=== PATIENT | male | born 1935 | race African-American/Black ===

== ENCOUNTER 2017-11-10 22:22 | Inpatient (IN) | payer OTHER ==
[~2017-11-10] VITALS: Ht 165.1 cm; Wt 68.6 kg
[~2017-11-10 22:22] MED LIST: ADVAIR HFA 115/1 PUF PO; AZOPT 10 ML10 ML OD; HYDRODIURIL 2525 MG PO; LEVOTHROID SO0.05 MG PO; MASON NATURAL2000 IU PO; MEDROL DOSEPAK1 PAC PO; PREDNISONE10 MG PO; VERAPAMIL HCL240 MG PO; XALATAN 0.50 GTT/1 B OPH
--- NOTE | 2017-11-10 22:28 | ED GENERAL ADULT ---
History of Present Illness General Chief Complaint: Dyspnea (COPD, CHF, Other) Stated Complaint: BIBA FOR DIFF BREATHING Source: old records, EMS Exam Limitations: poor historian Vital Signs & Intake/Output Vital Signs & Intake/Output Vital Signs Date Time Temp Pulse Resp B/P B/P Pulse O2 O2 Flow FiO2 Mean Ox Delivery Rate 11/11 0003 68 20 133/69 98 Nasal 2.0L Cannula 11/10 2227 98.8 93 30 164/77 97 Room Air ED Intake and Output 11/11 0000 11/10 1200 Intake Total 0 Output Total Balance 0 Intake, Oral 0 Allergies Coded Allergies: NO KNOWN ALLERGIES (01/05/14) Triage Nurses Notes Reviewed? yes HPI: Patient presents for evaluation of shortness of breath followed by an episode of unresponsiveness. Patient himself is not providing history and paramedics state that the family was unable to provide history as well. (Earline FALK,eRese Tapia) Reconcile Medications Brinzolamide (Azopt 10 Ml) 1 % DROPS.SUSP 1 GTT OD BID RIGHT EYE (Reported) CHOLECALCIFEROL (VITAMIN D3) (Vitamin D) (Unknown Strength) SGL (Unknown Dose) PO DAILY SUPPLEMENT (Reported) Donepezil HCl 10 MG TABLET 1 TAB PO DAILY ALZHEIMERS (Reported) Fluticasone Propionate/Salme (Advair Hfa 115-21 Mcg Inhaler) 115 MCG-21 MCG/ ACTUATION HFA.AER.AD 1 PUF PO DAILY COPD (Reported) Fluticasone-Salmeterol (Advair 100-50 Diskus) 100 MCG-50 MCG/DOSE BLST.W.DEV 1 PUF INH BID EMPHYSEMA (Reported) Latanoprost (Xalatan 0.005% 2.5 Ml) 0.005 % DROPS 1 GTT OPH QPM BOTH EYES ( Reported) Levothyroxine Sodium (Levothroid Sodium) 0.05 MG TAB 1 TAB PO DAILY THYROID ( Reported) Levothyroxine Sodium 50 MCG TABLET 1 TAB PO DAILY HYPOTHYROIDISM (Reported) Memantine HCl (Namenda) 10 MG TABLET 1 TAB PO BID ALZHEIMERS (Reported) Methylprednisolone. (Medrol) 1 PAC PAC 1 PAC PO TAPER COPD VERAPAMIL HCL (Verapamil Sr) 240 MG CAP24H.PEL 1 CAP PO DAILY BP (Reported) Verapamil HCl (Verapamil ER) 240 MG CAP24H.PEL 1 CAP PO DAILY HYPERTENSION ( Reported) (Jeremiah FALK,Chan Bonilla) Past History Travel History Traveled to [place] past 21 day No Medical History Any Pertinent Medical History? see below for history Neurological: STROKE Cardiovascular: hypertension Respiratory: EMPHESYMA Psychiatric: DEMENTIA Endocrine: HYPOTHYROID Surgical History Surgical History: non-contributory Psychosocial History What is your primary language Estonian Family History Hx Contributory? No (Earline FALK,Reese Tapia) Review of Systems Review of Systems Constitutional: Reports: no symptoms. EENTM: Reports: no symptoms. Respiratory: Reports: see HPI. Cardiovascular: Reports: no symptoms. GI: Reports: no symptoms. Genitourinary: Reports: no symptoms. Musculoskeletal: Reports: no symptoms. Skin: Reports: no symptoms. Neurological/Psychological: Reports: no symptoms. Hematologic/Endocrine: Reports: no symptoms. Immunologic/Allergic: Reports: no symptoms. All Other Systems: Reviewed and Negative (Earline FALK,Reese Tapia) Physical Exam Physical Exam General Appearance: SEE BELOW Comments: Gen.: Well-nourished, well-developed, no acute respiratory distress. Head: Normocephalic, atraumatic. Eyes: Normal inspection bilaterally Ears: Normal inspection bilaterally Nose: Normal inspection Throat/mouth : Moist mucosa Neck: Supple, full range of motion, no goiter Heart: Regular rate and rhythm, no murmurs rubs or gallops Lungs: Clear to auscultation bilaterally with normal air entry Chest: Nontender Back: Normal range of motion Abdomen: Soft, nontender, nondistended, normal bowel sounds Extremities: Normal range of motion grossly, equal radial pulses, no cyanosis clubbing or edema Neurologic: Cranial nerves grossly intact, speech is clear, perseverating "[facility]" Skin: warm and dry Psychiatric: Calm, compliant with exam but not particularly cooperative, no apparent delusions or hallucinations Core Measures ACS in differential dx? No CVA/TIA Diagnosis: No Sepsis Present: No Sepsis Focused Exam Completed? No (Earline FALK,Reese Tapia) Progress Differential Diagnoses I considered the following diagnoses in my evaluation of the patient: Plan of Care: Orders Procedure Date/time Status TSH REFLEX 11/11 599 Active Patient Data 11/11 99 Active Saline Lock 11/11 37 Active ED Holding Orders 11/11 37 Active Admit to inpatient 11/11 37 Active Vital Signs 11/11 37 Active Code Status 06/13 0038 Active Add-on Test (ER Only) 11/11 0033 Active Intake & Output 11/10 2312 Active Add-on Test (ER Only) 11/10 2258 Active PROLACTIN 11/11 2231 Complete LACTIC ACID 11/11 2231 Complete CREATINE PHOSPHOKINASE 11/11 2231 Complete Saline Lock 11/11 2227 Active URINE DRUG SCREEN FOR ER ONLY 11/11 2227 Complete URINALYSIS 11/11 2227 Complete TROPONIN LEVEL 11/11 2227 Complete ETHANOL 11/11 2227 Complete COMPREHENSIVE METABOLIC PANEL 11/11 2227 Complete CBC WITHOUT DIFFERENTIAL 11/11 2227 Complete EKG 11/11 2223 Active Laboratory Tests 11/10/17 2345: Urine Opiates Screen < 100, Methadone Screen 40, Barbiturate Screen < 60, Ur Phencyclidine Scrn < 6.00, Amphetamines Screen 402, U Benzodiazepines Scrn < 85, Urine Cocaine Screen < 50, Urine Cannabis Screen < 5.00, Urine Color YEL, Urine Clarity HAZY H, Urine pH 6.0, Ur Specific [place] >= 1.030, Urine Protein 30 H , Urine Ketones NEG, Urine Nitrite POS H, Urine Bilirubin NEG, Urine Urobilinogen 0.2, Ur Leukocyte Esterase SMALL H, Ur Microscopic SEDIMENT EXAMINED, Urine RBC RARE, Urine WBC 10-15 H, Ur Epithelial Cells RARE, Urine Bacteria MOD H, Hyaline Casts RARE H, Urine Mucus RARE, Urine Hemoglobin SMALL H, Urine Glucose 100 H 11/10/172231: Anion Gap 22 H, Estimated GFR > 60, BUN/Creatinine Ratio 13.6, Glucose 179 H, Lactic Acid 11.0 H, Calcium 9.5, Total Bilirubin 0.3, AST 32, ALT 31, Alkaline Phosphatase 90, Creatine Kinase 140, Troponin I < 0.01, Total Protein 7.3, Albumin 4.2, Globulin 3.1, Albumin/Globulin Ratio 1.4, Prolactin 21.0 H, CBC w Diff NO MAN DIFF REQ, RBC 4.29 L, MCV 95.7 H, MCH 30.9, MCHC 32.3 L, RDW 15.3 H, MPV 7.4, Gran % 43.9, Lymphocytes % 45.9, Monocytes % 8.1, Eosinophils % 1.5 , Basophils % 0.6, Absolute Granulocytes 4.6, Absolute Lymphocytes 4.8 H, Absolute Monocytes 0.9 H, Absolute Eosinophils 0.2, Absolute Basophils 0.1, Serum Alcohol < 10.0 Comments: 11/10/2017 11:37:31 PM patient signed out to Dr. Daniels at [employer]. (Earline FALK,Reese Tapia) Differential Diagnoses I considered the following diagnoses in my evaluation of the patient: seizure vs syncope vs other. Diagnostic Imaging: Viewed by Me: Radiology Read, CT Scan. Discussed w/RAD: Radiology Read, CT Scan. Radiology Impression: PATIENT: HAYES KIM PRESENT AGE: 82 PATIENT ACCOUNT NO: [id number] : 36 LOCATION: ER ORDERING PHYSICIAN: Reese Patten MD SERVICE DATE: 11/10/17 EXAM TYPE: CAT - CT HEAD WO IV CONTRAST EXAMINATION: CT HEAD WITHOUT CONTRAST CLINICAL INFORMATION: CVA, hemorrhage, mass. Altered mental status COMPARISON: Brain MRI 01/08/2015 TECHNIQUE: Contiguous axial imaging was performed from the skull base to vertex without intravenous administration of contrast. DLP: 621 mGy-cm. FINDINGS: There is no intracranial hemorrhage, large infarction, or mass lesion. There is no extra-axial collection. There is moderate scattered hypoattenuation in the bilateral cerebral white matter, which is nonspecific but likely reflects small vessel disease. There is mild diffuse brain parenchymal volume loss with prominence of the ventricles and sulci. The paranasal sinuses are clear. The mastoids and middle ear cavities are clear. IMPRESSION: - No acute abnormality identified. - Moderate small vessel ischemic changes. DICTATED BY: Suzan Albrecht MD DATE/TIME DICTATED:11/10/172312 PHOTO CHECKER:JESSE DATE/TIME TRANSCRIBED:11/10/172312 CONFIDENTIAL, DO NOT COPY WITHOUT APPROPRIATE AUTHORIZATION. <Electronically signed in Other Vendor System> SIGNED BY: Suzan Albrecht MD 11/10/17 2319, PATIENT: HAYES KIM PRESENT AGE: 82 PATIENT ACCOUNT NO: [id number] : 36 LOCATION: [facility] [place] ORDERING PHYSICIAN: Reese Patten MD SERVICE DATE: 11/10/17 EXAM TYPE : RAD - XRY-PORTABLE CHEST XRAY EXAMINATION: XR PORTABLE CHEST CLINICAL INFORMATION: Infiltrate. Altered mental status. COMPARISON: Chest radiograph . TECHNIQUE: Portable frontal view of the chest was obtained. FINDINGS: There is patchy consolidation in the right lower lung zones which is superimposed on chronic right lower lobe pleural-parenchymal thickening/ scarring. There is also patchy consolidation left lower lung zone. There is no edema, effusion, or pneumothorax. The aorta is normal. Heart size is normal. The osseous structures are grossly intact. IMPRESSION: Patchy consolidation in the bilateral lower lung zones superimposed on chronic changes. DICTATED BY: Suzan Albrecht MD DATE/TIME DICTATED:11/10/172315 PHOTO CHECKER:JESSE DATE/ TIME TRANSCRIBED:11/10/172315 CONFIDENTIAL, DO NOT COPY WITHOUT APPROPRIATE AUTHORIZATION. <Electronically signed in Other Vendor System> SIGNED BY: Suzan Albrecht MD 11/10/172320 Initial ED EKG: sinus, rbbb, no acute changes (Chan Daniels MD) Departure Departure Disposition: STILL A PATIENT Condition: Stable Referrals: Magui FALK,Cortes Dasilva (PCP/Family) Departure Forms: Customer Survey General Discharge Information (Earline FALK,Reese Tapia) Departure Clinical Impression Primary Impression: Altered mental status Secondary Impressions: Seizure Comments 11/11/17, 0:43... discussed with neurology who will see patient later today. Admission Note Spoke With: Souleymane Sales MD Documentation of Exam: Documentation of any treatments & extenuating circumstances including Concerns Regarding Discharge (functional status, medication knowledge or non-compliance, living conditions, etc.) that warrant an admission rather than observation: pt with grand mal tonic clonic seizure type activity... diff dx includes seizure vs syncope/dysrhythmia... merits serial trops/ekgs/neuro evaluation. (Chan Daniels MD) Critical Care Note Critical Care Note Critical Care Time: non-applicable (Chan Daniels MD)
[2017-11-10 22:41] LABS: ABSOLUTE BASOPHIL COUNT 0.1 /CUMM (0.0-0.2); ABSOLUTE EOSINOPHIL COUNT 0.2 /CUMM (0.0-0.7); ABSOLUTE GRANULOCYTE CT 4.6 /CUMM (1.4-6.5); ABSOLUTE LYMPH COUNT 4.8 /CUMM (1.2-3.4); ABSOLUTE MONOCYTE COUNT 0.9 /CUMM (0.10-0.60); BASOPHIL % 0.6 % (0.0-2.0); EOSINOPHIL % 1.5 % (0-5); GRANULOCYTE % 43.9 % (42.2-75.2); MEAN CORPUSCULAR HGB 30.9 PG (27.0-31.0); MEAN CORPUSCULAR HGB CONC 32.3 G/DL (33.0-37.0); MEAN CORPUSCULAR VOLUME 95.7 FL (80.0-94.0); MEAN PLATELET VOLUME 7.4 FL (7.4-10.4); PLATELET COUNT 190 /CUMM (130-400); RBC DISTRIBUTION WIDTH 15.3 % (11.5-14.5); RED BLOOD CELL CT 4.29 /CUMM (4.70-6.10); WHITE BLOOD CELL COUNT 10.6 /CUMM (4.8-10.8)
--- NOTE | 2017-11-10 23:19 | CT SCAN REPORT ---
EXAMINATION: CT HEAD WITHOUT CONTRAST CLINICAL INFORMATION: CVA, hemorrhage, mass. Altered mental status COMPARISON: Brain MRI 01/08/2015 TECHNIQUE: Contiguous axial imaging was performed from the skull base to vertex without intravenous administration of contrast. DLP: 621 mGy-cm. FINDINGS: There is no intracranial hemorrhage, large infarction, or mass lesion. There is no extra-axial collection. There is moderate scattered hypoattenuation in the bilateral cerebral white matter, which is nonspecific but likely reflects small vessel disease. There is mild diffuse brain parenchymal volume loss with prominence of the ventricles and sulci. The paranasal sinuses are clear. The mastoids and middle ear cavities are clear. IMPRESSION: - No acute abnormality identified. - Moderate small vessel ischemic changes.
--- NOTE | 2017-11-10 23:21 | RADIOLOGY REPORT ---
EXAMINATION: XR PORTABLE CHEST CLINICAL INFORMATION: Infiltrate. Altered mental status. COMPARISON: Chest radiograph 06/29/2015. TECHNIQUE: Portable frontal view of the chest was obtained. FINDINGS: There is patchy consolidation in the right lower lung zones which is superimposed on chronic right lower lobe pleural-parenchymal thickening/scarring. There is also patchy consolidation left lower lung zone. There is no edema, effusion, or pneumothorax. The aorta is normal. Heart size is normal. The osseous structures are grossly intact. IMPRESSION: Patchy consolidation in the bilateral lower lung zones superimposed on chronic changes.
[2017-11-10] MEDS ORDERED: LEVOTHYROXINE50 MCG PO (23:53)
[2017-11-10] MEDS ORDERED: VERAPAMIL ER240 MG PO (23:54)
[2017-11-10] MEDS ORDERED: ADVAIR 100-501 EACH INH (23:55)
[2017-11-10] MEDS ORDERED: NAMENDA10 M2 PO (23:55)
[2017-11-10] MEDS ORDERED: DONEPEZIL HCL10 M1 PO (23:56)
--- NOTE | 2017-11-11 01:26 | History & Physical ---
Margie Cotton MD,[facility] 11/11/17 0126: General Information and HPI MD Statement: I have seen and personally examined HAYES WEI and documented this H&P. The patient is a 82 year old M who presented with a patient stated chief complaint of [diff breathing]. Source of Information: patient, family, old records, EMS Exam Limitations: poor historian History of Present Illness: Patient is 82 y M with PMH of stroke, dementia, emphysema, HTN, hypothyroidism, GLUCOMA was BIBA to ED with after and episode of being unresponsive. Patient is relatively poor historian and family were contributing in history taking. Patient was in normal state of health until earlier yesterday, he was watching TV after eating dinner, he then became unresponsive suddenly and started to have generalized tonic colonic seizure. Family witnessed the episode and noted he had no bowel bladder incontinance, he had post episode confusion, he also uses dentures and did not bite his tongue (dentures were removed by EMS). EMS was called and patient was transfered to ED. By the time that patient arrived he was alert and oriented. Patient denied any head trauma during the episode, denied any halucination, dizziness, SOB, palpitation before the episode. Patient never had a similar episode in the past. He reported a stroke 20 y ago with residual eye (?) problem , and also reported neck surgery 30 y ago. He denied alcohol or drug abuse and quited smoking more than 30 years ago. Allergies/Medications Allergies: Coded Allergies: NO KNOWN ALLERGIES (01/05/14) Past History Travel History Traveled to [place] past 21 day No Medical History Neurological: STROKE Cardiovascular: hypertension Respiratory: EMPHESYMA Psychiatric: DEMENTIA Endocrine: HYPOTHYROID Surgical History Surgical History: non-contributory Review of Systems Review of Systems Constitutional: Reports: see HPI. Exam & Diagnostic Data Last 24 Hrs of Vital Signs/I&O Vital Signs Date Time Temp Pulse Resp B/P B/P Pulse O2 O2 Flow FiO2 Mean Ox Delivery Rate 11/11 0300 98.2 68 22 154/74 98 Nasal 2.0L Cannula 11/11 0247 98 Nasal 2.0L Cannula 11/11 0151 98.6 71 20 156/72 97 Nasal 2.0L Cannula 11/11 0003 68 20 133/69 98 Nasal 2.0L Cannula 11/107 98.8 93 30 164/77 97 Room Air Intake & Output 11/11 0800 11/11 0000 11/10 1600 Intake Total 0 Output Total Balance 0 Intake, Oral 0 Patient 136 lb Weight Weight Bed scale Measurement Method Physical Exam General Appearance Alert, Oriented X3, Cooperative, No Acute Distress Skin No Significant Lesion Skin Temp/Moisture Exam: Warm/Dry Sepsis Skin Exam (color): Normal for Ethnicity HEENT Atraumatic, EOMI, mucous membranes dry Cardiovascular Regular Rate, Normal S1, Normal S2 Lungs decreased breathing sounds in the right side Abdomen Soft, No Tenderness Neurological Normal Speech, Strength at 5/5 X4 Ext, Cranial Nerves 3-12 NL Extremities No Edema Last 24 Hrs of Labs/Rocky: Laboratory Tests 11/10/17 2345: Urine Opiates Screen < 100, Methadone Screen 40, Barbiturate Screen < 60, Ur Phencyclidine Scrn < 6.00, Amphetamines Screen 402, U Benzodiazepines Scrn < 85, Urine Cocaine Screen < 50, Urine Cannabis Screen < 5.00, Urine Color YEL, Urine Clarity HAZY H, Urine pH 6.0, Ur Specific [place] >= 1.030, Urine Protein 30 H , Urine Ketones NEG, Urine Nitrite POS H, Urine Bilirubin NEG, Urine Urobilinogen 0.2, Ur Leukocyte Esterase SMALL H, Ur Microscopic SEDIMENT EXAMINED, Urine RBC RARE, Urine WBC 10-15 H, Ur Epithelial Cells RARE, Urine Bacteria MOD H, Hyaline Casts RARE H, Urine Mucus RARE, Urine Hemoglobin SMALL H, Urine Glucose 100 H 11/10/17 2232: Anion Gap 22 H, Estimated GFR > 60, BUN/Creatinine Ratio 13.6, Glucose 179 H, Lactic Acid 11.0 H, Calcium 9.5, Total Bilirubin 0.3, AST 32, ALT 31, Alkaline Phosphatase 90, Creatine Kinase 140, Troponin I < 0.01, Total Protein 7.3, Albumin 4.2, Globulin 3.1, Albumin/Globulin Ratio 1.4, Prolactin 21.0 H, CBC w Diff NO MAN DIFF REQ, RBC 4.29 L, MCV 95.7 H, MCH 30.9, MCHC 32.3 L, RDW 15.3 H, MPV 7.4, Gran % 43.9, Lymphocytes % 45.9, Monocytes % 8.1, Eosinophils % 1.5 , Basophils % 0.6, Absolute Granulocytes 4.6, Absolute Lymphocytes 4.8 H, Absolute Monocytes 0.9 H, Absolute Eosinophils 0.2, Absolute Basophils 0.1, Serum Alcohol < 10.0 Assessment/Plan Assessment: Patient is 82 y M presented after a TC seizure episode PMH of stroke, dementia, emphysema, HTN, hypothyroidism, GLUCOMA was BIBA VS, Ph Ex at admission: BP insignificant, initial respiratory rate 30, later 20, saturating well on 2l o2, no fever Labs at admission: WBC 10.6, Hgb 13.3 Sodium 148, anion gap 22, bicarbonate 23, lactic acid 11, prolactin 21 UA, which is positive, leukocyte esterase small, WBC 10-15, hemoglobin small Utox negative Imagings at admission: Chest x-ray: Patchy consolidation in the bilateral lower lung zones superimposed on chronic changes. Head CT: - No acute abnormality identified. - Moderate small vessel ischemic changes. Patient was admitted to telemetry floor for management of following conditions: Seizure, need to rule out secondary causes considering age r/o TIA/stroke active UA Pneumonitis/pneumonia Lactic acidosis - admit to tele floor -Cardiac, blood pressure monitor -Pulse ox, oxygen -IV fluids - MRI in AM - EEG - echo - Cardio consult in AM - neuro consult - hold Kepra, hold antibiotics for now -continue home medications FC Heart healthy diet DVT ppx: ALPS and pharmacological As Ranked By This Provider Problem List: 1. Seizure 2. Altered mental status Core Measures/Misc (02/15) Acute Coronary Syndrome ACS Diagnosis: No Congestive Heart Failure Congestive Heart Failure Diagnosis No Cerebrovascular Accident CVA/TIA Diagnosis: No VTE (View Protocol) VTE Risk Factors Age>40 No Mechanical VTE Prophylaxis d/t N/A MechProphylax Ordered No VTE Pharm Prophylaxis d/t NA PharmProphylax ordered Sepsis (View protocol) Sepsis Present: No If YES complete Sepsis Event Note If YES complete Sepsis Event Note Winsome Mane 11/11/17 0136: General Information and HPI Allergies/Medications Home Med list Aspirin (Aspirin*) 81 MG TAB.CHEW 162 MG PO DAILY HEART HEALTH . Atorvastatin Calcium 40 MG TABLET 40 MG PO 1700 HIGH CHOLESTROL Brinzolamide (Azopt) 1 % DROPS.SUSP 1 GTT OPH BID GLUACOMA RIGHT SIDE ( Reported) Ciprofloxacin HCl 250 MG TABLET 250 MG PO BID urine infection . Fluticasone-Salmeterol (Advair 100-50 Diskus) 100 MCG-50 MCG/DOSE BLST.W.DEV 1 PUF INH BID EMPHYSEMA (Reported) Latanoprost 0.005 % DROPS 1 GTT OPH QPM GLUCOMA (Reported) Levetiracetam 250 MG TABLET 250 MG PO BID SEIZURES Levothyroxine Sodium 50 MCG TABLET 1 TAB PO DAILY HYPOTHYROIDISM (Reported) Lisinopril 20 MG TABLET 20 MG PO DAILY HIGH BLOOD PRESSURE Memantine HCl (Namenda) 10 MG TABLET 1 TAB PO BID ALZHEIMERS (Reported) Metoprolol Tartrate 25 MG TABLET 25 MG PO BID HIGH BLOOD PRESSURE Core Measures/Misc (02/15) Sepsis (View protocol) If YES complete Sepsis Event Note If YES complete Sepsis Event Note Resident Review Statement Resident Statement: examined this patient, discussed with staff internist office based only, agreed with staff internist office based only Other Findings: Mr. Wei is a 82-year-old male with past medical history of dementia, emphysema, hypertension, hypothyroidism, glaucoma, previous history of stroke was brought in to emergency department after having an episode of being unresponsive followed by generalized tonic-clonic seizure on the night of presentation. Apparently the patient was doing all right prior to presentation when he was at the dinner table, he suddenly became unresponsive and began to have generalized tonic-clonic seizure which was witnessed by the family for a few minutes. This was followed by some confusions, h his dentures came out however he did not have any tongue biting, and they were removed by the EMS personnel. He denied any bowel bladder incontinence, any palpitations, dizziness lightheadedness, any weakness of the extremity, slurring of speech. Patient was transferred to emergency department by the emergency medical service. After coming to the hospital he has mostly been alert oriented, has been contributing to history taking and did not have any more episodes of seizures. Of note patient has never had any episodes of seizures before and this is his first episode of seizure. Historically he had a stroke 20 years ago with residual eye problem and and neck surgery 30 years ago. He quit smoking more than 30 years ago, does not drink alcohol or any other major drug abuse. Vitals at the emergency department were temperature of 98.6, pulse of 71, respiration of 20, blood pressure 156/72, he was saturating 97% on 2 L of nasal cannula. His urine toxicology was mostly negative. Urinalysis showed small leukocyte esterase, nitrite positive with 10-15 WBCs, however the patient did not have any symptoms. He had a white count of 10.6, H/H of 13.3/41.0, platelet of 190. His sodium was 148, potassium 3.7, BUN/creatinine 15/1.1, glucose of 179, anion gap of 22. He was found to have a lactic acid of 11, prolactin 21.0. Calcium was 9.5 and liver function tests are mostly negative. Chest x-ray showed patchy consolidation in bilateral lower lung zones and superimposed on chronic changes. Head CT did not show any acute abnormality however moderate small vessel ischemic changes were present. We will admit the patient to telemetry floor for evaluation of brief episode of unresponsiveness along with seizure-like activity. #1 Seizure like activity #2 Unresponsiveness r/o TIA/Stroke/cardiac arrythmia #3 Positive UA #4 Thrombocytopenia #5 Lactic Acidosis #6 Glaucoma #7 dementia #8 hypothyroid -Ct to monitor on telemetry -Ct to monitor i/o, seizure precautions, aspiration precautions. -Iv Ativan if seizes -MRI brain to r/o secondary cause of seizures in elderly man with first time seizure episode in his 80's. -Neuro consult -EEG -Echo to r/o structural heart disease. -Ct to monitor lytes, replete as needed. -Treat off Ax as no symptoms though positive UA -Treat with iv fluids 1 to 2 bags. -Ct to follow cbc, BEP -Repeat lactic acid with am labs. -Ct latanoprost for glaucoma -Ct donepezil,memantine -Ct synthroid DNR/DNI regular diet dvt px with lovenox Henrry,Aartee 11/11/17 0534: Core Measures/Misc (02/15) Sepsis (View protocol) If YES complete Sepsis Event Note If YES complete Sepsis Event Note Attending MD Review Statement Attending Statement Attending MD Statement: examined this patient, discuss w/resident/PA/EMT DRIVER, agreed w/resident/PA/EMT DRIVER, discussed with family, reviewed EMR data (avail), reviewed images, amended to note Attending Assessment/Plan: CC: Seizure-like activity PMH: HTN, hypothyroidism, dementia, glaucoma, history of CVA, COPD, neck surgery History is obtained from patient's son who lives with him. Patient was apparently all right until dinnertime. He finished his dinner and routinely watching television when all of a sudden he became unresponsive and after that had seizure-like activity of all extremities. Vision did not have any tongue bite but dislodged his dentures. He did not have any bladder or bowel incontinence. Never had history of seizure or syncope in the past. Seizure activity may have lasted for 1-2 minutes, EMS was immediately called. By the time they came and patient was already improving and by the time patient arrived in ER he was alert and oriented. Patient does not have any residual weakness, confusion. Vitals: Temperature 98.8, pulse 93, RR 20, blood pressure 164/77, saturating 97% on 2 L nasal cannula On exam: A O 3, cooperative, no acute distress, neck supple, JVD normal, no lymphadenopathy, mucosa moist, PERRLA, vision intact, possibly mild weakness on lateral rectus on the right eye which does not appear new. No focal neurological deficit, tone and reflexes normal, cerebellar signs negative no dependent edema, no obvious skin rashes or inflammation CVS: S1-S2, RRR. RS: Mild crackles and right base. Abdomen: Soft, NT, ND, bowel sounds present. CXR: Patchy consolidation in the bilateral lower lung zones superimposed on chronic changes. CT head: - No acute abnormality identified. - Moderate small vessel ischemic changes. Assessment and plan 82-year-old male with above-mentioned past medical history presented in ER for seizure-like activity. According to description it appears that patient may have to tonic-clonic seizure at home and loss of consciousness. Patient regained consciousness immediately after the episode and did not have any residual weakness or confusion. He had significant lactic acidosis probably secondary to seizures. An prolactin was also elevated at initially ER labs. Patient's new onset seizure at age of 82 need further evaluation. Another possibility that he may have syncope followed by seizure but less likely. Even though these enhance mild crackles on right base and patchy consolidation bilateral lower lung zones, probably patient may have aspiration pneumonitis and we will not start any antibiotics. He also has nitrites and leukocyte esterase positive but does not endorse any complaints of urinary frequency, burning or irritation and we will watch him off antibiotics. + New-onset seizure + Rule out syncope + Lactic acidosis secondary to seizure + History of HTN, hypothyroidism, dementia, glaucoma, history of CVA, COPD, neck surgery - Admit to telemetry - Continuous telemetry monitoring - Serial neuro checks - Seizure precautions - When necessary Ativan for any repeat episode of seizure - If patient has seconds seizure episode then start Keppra 500 mg twice a day - MRI brain with and without contrast - EEG - Neuro consult - 2-D echocardiogram to rule out any structural causes for syncope - Serial troponin ECGs - Cardiology consult
[2017-11-11] MEDS ORDERED: AZOPT10 ML OPH (02:12)
[2017-11-11] MEDS ORDERED: LATANOPROST2.5 ML OPH (02:13)
[2017-11-11 03:00] VITALS: BP 154/74
--- NOTE | 2017-11-11 05:36 | Admission Certification ---
Admission Certification Certification Statement - As attending physician, I certify that at the time of - admission, based on clinical presentation, severity of - symptoms, need for further diagnostic testing and - therapeutic interventions, and risk of adverse outcomes - without in-hospital treatment, in my clinical assessment, - this patient requires an acute hospital stay for a minimum - of two nights or longer. I have also considered psychsocial - factors such as support system, advanced age, financial - issues, cognitive issues, and failed out-patient treatments, - past re-admission history, safety of patient, and lack of - compliance as applicable. Specific rationale supporting this admission is: New onset seizure
[2017-11-11 06:47] VITALS: BP 128/70; BP 142/64
[2017-11-11 06:53] VITALS: BP 142/64
--- NOTE | 2017-11-11 07:09 | PN- Housestaff ---
Martha FALK,Leisa 11/11/17 0709: Subjective Follow-up For: New-onset seizure like activities Rule out syncope Tele-Events Since Last Visit: Normal sinus rhythm, heart rate 68, 0.1, 0.2, BBB, no overnight events Subjective: Patient was seen and examined at bedside, he denies any complaints including headache, focal weakness or numbness. No overnight events, vitals stable Review of Systems Constitutional: Reports: see HPI. Objective Last 24 Hrs of Vital Signs/I&O Vital Signs Date Time Temp Pulse Resp B/P B/P Pulse O2 O2 Flow FiO2 Mean Ox Delivery Rate 11/11 0653 98.4 63 20 142/64 99 Nasal Cannula 11/11 0647 97.4 76 20 128/70 96 Room Air 11/11 0647 98.4 63 22 142/64 99 Room Air 11/11 0300 98.2 68 22 154/74 98 Nasal 2.0L Cannula 11/11 0247 98 Nasal 2.0L Cannula 11/11 0151 98.6 71 20 156/72 97 Nasal 2.0L Cannula 11/11 0003 68 20 133/69 98 Nasal 2.0L Cannula 11/10 2227 98.8 93 30 164/77 97 Room Air Intake & Output 11/11 1600 11/11 0800 11/11 0000 Intake Total 725 0 Output Total 75 Balance 650 0 Intake, IV 725 Intake, Oral 0 Output, Urine 75 Patient 136 lb Weight Weight Bed scale Measurement Method Physical Exam General Appearance: Alert, Oriented X3, Cooperative, No Acute Distress HEENT: Atraumatic, PERRLA, EOMI, Mucous Membr. moist/pink Neck: Supple, No JVD Cardiovascular: Normal S1, Normal S2 Lungs: Clear to Auscultation Abdomen: Normal Bowel Sounds, Soft, No Tenderness Neurological: Normal Speech, Strength at 5/5 X4 Ext, Normal Tone, Sensation Intact, Cranial Nerves 3-12 NL Extremities: No Clubbing, No Cyanosis, No Edema Assessment/Plan Assessment: 82-year-old male with PMH of dementia, emphysema, hypertension, hypothyroidism, glaucoma, previous history of stroke, presented in ER for seizure-like activity. According to description it appears that patient may have to tonic-clonic seizure at home and loss of consciousness. Patient regained consciousness immediately after the episode and did not have any residual weakness or confusion. On admission he had significant lactic acidosis which quickly resolved with making it most likely due to the seizure. -Seizure like activitynew onset at the age of 82 -? syncope - Lactic acidosis -resolved- -testicular pain and swelling (possible hydrocele) -History of HTN, hypothyroidism, dementia, glaucoma, history of CVA, COPD, neck surgery - Continuous telemetry monitoring - Serial neuro checks - Seizure precautions - When necessary Ativan for any repeat episode of seizure - If patient has seconds seizure episode then start Keppra 500 mg twice a day -Follow-up 1 MRI brain with and without contrast -Follow-up on EEG -Follow-up and ultrasound carotid -Follow-up on testicular ultrasound Follow-up 2-D echocardiogram to rule out any structural causes for syncope - Serial troponin ECGs were negative which ruled out ACS - Cardiology consult appreciated - Neuro consult appreciated DNR/DNI regular diet dvt px with lovenox Problem List: 1. Seizure 2. Altered mental status Pain Ratin Pain Location: N/A Pain Goal: Remain pain free Pain Plan: [facility] Labs & Rationales: CBC BEP Pepper Mckeon 11/11/17 1248: Attending MD Review Statement Attending Statement Attending MD Statement: examined this patient, discuss w/resident/PA/VIDEOTAPE OPERATOR, agreed w/resident/PA/VIDEOTAPE OPERATOR, discussed with family, reviewed EMR data (avail), discussed with nursing, discussed with case mgmt, reviewed images, amended to note Attending Assessment/Plan: Patient seen/examined bedside. PMH of dementia and hydrocele follow PCP as outpatient balwinder dunn by ambulance after founbd to have seizure like activity. Son bedside who is primary caregiver. Patient admitted to telemetry for syncope r/o seizure disorder. Obtain cardiology and neurology consult. Troponin negative so far. Obtain ECHO, MRI brain, Head CT negative. Hypernatrmeia with improvement. Na 146 today, 148 on admission Dementia provide supportive care Hydrocele with urinalysis abnormal will repeat UA, obtain culture. USG scrotum. Follow Dr Fuentes as outpatient.
[2017-11-11 08:16] LABS: ABSOLUTE BASOPHIL COUNT 0 /CUMM (0.0-0.2); ABSOLUTE EOSINOPHIL COUNT 0.1 /CUMM (0.0-0.7); BASOPHIL % 0.4 % (0.0-2.0); EOSINOPHIL % 0.6 % (0-5); MEAN CORPUSCULAR HGB 31.6 PG (27.0-31.0); MEAN PLATELET VOLUME 7.8 FL (7.4-10.4)
[2017-11-11 08:36] LABS: ABSOLUTE GRANULOCYTE CT 6.1 /CUMM (1.4-6.5); ABSOLUTE LYMPH COUNT 1.6 /CUMM (1.2-3.4); ABSOLUTE MONOCYTE COUNT 0.7 /CUMM (0.10-0.60); MEAN CORPUSCULAR HGB CONC 33.5 G/DL (33.0-37.0); MEAN CORPUSCULAR VOLUME 94.5 FL (80.0-94.0); PLATELET COUNT 152 /CUMM (130-400); RBC DISTRIBUTION WIDTH 15.4 % (11.5-14.5); RED BLOOD CELL CT 3.76 /CUMM (4.70-6.10); WHITE BLOOD CELL COUNT 8.5 /CUMM (4.8-10.8)
[2017-11-11 08:40] LABS: GRANULOCYTE % 71.9 % (42.2-75.2); HEMATOCRIT 35.5 % (42-52)
--- NOTE | 2017-11-11 12:22 | MRI REPORT ---
EXAMINATION: MR BRAIN WITHOUT CONTRAST CLINICAL INFORMATION: First time seizure in his 80s. COMPARISON: Head CT November 10, 2017 and brain MRI January 08, 2015. TECHNIQUE: Multiplanar, multisequence imaging of the brain was performed without intravenous contrast. The images are moderately motion degraded. \H\ \N\FINDINGS: There is no acute infarct, hemorrhage, or mass lesion. There is no extra-axial collection. There are moderate foci of T2 hyperintensity in the bilateral cerebral white matter, which are nonspecific but likely reflect underlying small vessel disease. There is mild diffuse brain parenchymal volume loss with prominence of the ventricles and sulci. The flow voids of the major intracranial arteries appear intact. Small amount of fluid in the right mastoid. The paranasal sinuses are clear. The orbital contents appear normal. IMPRESSION: - No acute infarct, mass lesion, intracranial hemorrhage, or evidence of hydrocephalus. - Moderate small vessel ischemic changes.
--- NOTE | 2017-11-11 14:18 | ULTRASOUND REPORT ---
EXAMINATION: DUPLEX BILATERAL CAROTID ULTRASOUND CLINICAL INFORMATION: Syncope and dizziness COMPARISON: None. TECHNIQUE: Duplex bilateral carotid US was performed using real-time ultrasound and Doppler techniques (integrating B-mode 2D vascular images, Doppler spectral analysis and color flow Doppler imaging). These techniques were utilized to interrogate the extracranial carotid and vertebral arteries bilaterally. The degree of stenosis is based off criteria similar to NASCET. FINDINGS: 1. On the right: Plaque is present at the carotid bifurcation but velocity measurements are normal and do not suggest a stenosis of greater than 50% diameter reduction in the right ICA. The right external carotid artery shows no significant stenosis. The vertebral artery is patent demonstrating antegrade flow. . 2. On the left: Plaque is present at the carotid bifurcation but velocity measurements are normal and do not suggest a stenosis of greater than 50% diameter reduction in the left ICA. The left external carotid artery shows no significant stenosis. The vertebral artery is patent demonstrating antegrade flow. IMPRESSION: Plaque is present in the internal carotid arteries but velocity measurements are normal and there is no evidence to suggest a hemodynamically significant stenosis of greater than 50% diameter reduction.
[2017-11-11 14:42] VITALS: BP 162/80
--- NOTE | 2017-11-11 15:07 | Cons- Neurology ---
General Information and HPI Consulting Request Date of Consult: 11/11/17 Requested By: Mike FALK,Pepper History of Present Illness: 82 year old male admitted after having apparent witnessed seizure Patient has dementia and is unable to give a coherent history History is obtained from medical records Yesterday when watching television he became unresponsive Resumes observed to have generalized tonic-clonic seizures There was no incontinence or tongue biting EMS was called It was no history of significant head trauma There was no history of alcohol abuse or drug abuse Patient at present is feeling well but cannot give any history about what took place No observed hospital seizure Allergies/Medications Allergies: Coded Allergies: NO KNOWN ALLERGIES (01/05/14) Home Med List: Brinzolamide (Azopt) 1 % DROPS.SUSP 1 GTT OPH BID GLUACOMA RIGHT SIDE ( Reported) Donepezil HCl 10 MG TABLET 1 TAB PO DAILY ALZHEIMERS (Reported) Fluticasone-Salmeterol (Advair 100-50 Diskus) 100 MCG-50 MCG/DOSE BLST.W.DEV 1 PUF INH BID EMPHYSEMA (Reported) Latanoprost 0.005 % DROPS 1 GTT OPH QPM GLUCOMA (Reported) Levothyroxine Sodium 50 MCG TABLET 1 TAB PO DAILY HYPOTHYROIDISM (Reported) Memantine HCl (Namenda) 10 MG TABLET 1 TAB PO BID ALZHEIMERS (Reported) Verapamil HCl (Verapamil ER) 240 MG CAP24H.PEL 1 CAP PO DAILY HYPERTENSION ( Reported) Current Medications: Current Medications Sig/Faizan Start time Last Medication Dose Route Stop Time Status Admin Alprazolam 0.25 MG ONCE ONE 11/11 1015 DC PO 11/11 1016 Donepezil HCl 10 MG DAILY 11/11 09 AC 11/11 PO 0955 Enoxaparin Sodium 40 MG DAILY 11/11 09 AC 11/11 SC 0955 Latanoprost 1 GTT QPM 11/11 2100 AC OPH Levothyroxine Sodium 0.05 MG DAILY AC 11/11 0700 AC 11/11 PO 0955 Memantine 10 MG BID 11/11 0900 AC 11/11 PO 0955 Sodium Chloride 500 ML BOLUS ONE 11/11 0215 DC 11/11 IV 11/11 0314 0228 Sodium Chloride 1,000 ML Q13H 11/11 0215 DC 11/11 IV 0346 Review of Systems Review of Systems: Patient denies headache, vertigo, diplopia, chest pains, vomiting, head trauma, focal weakness Patient admits to occasional shortness of breath Other systems reviewed are unreliable Past History Travel History Traveled to [place] past 21 day No Medical History Blood Transfusion Hx: No Neurological: STROKE Cardiovascular: hypertension Respiratory: EMPHESYMA Psychiatric: DEMENTIA Endocrine: HYPOTHYROID Surgical History Surgical History: non-contributory Psychosocial History Where Do You Live? Home Services at Home: None Smoking Status: Former Smoker Exam & Diagnostic Data Vital Signs and I&O Vital Signs Date Time Temp Pulse Resp B/P B/P Pulse O2 O2 Flow FiO2 Mean Ox Delivery Rate 11/11 1442 97.9 70 20 162/80 97 Nasal 3.0L Cannula 11/11 0800 99 Nasal 2.0L Cannula 11/11 0653 98.4 63 20 142/64 99 Nasal Cannula 11/11 0647 97.4 76 20 128/70 96 Room Air 11/11 0647 98.4 63 22 142/64 99 Room Air 11/11 0300 98.2 68 22 154/74 98 Nasal 2.0L Cannula 11/11 0247 98 Nasal 2.0L Cannula 11/11 0151 98.6 71 20 156/72 97 Nasal 2.0L Cannula 11/11 0003 68 20 133/69 98 Nasal 2.0L Cannula 11/10 2227 98.8 93 30 164/77 97 Room Air Intake & Output 11/11 1600 11/11 0800 11/11 0000 Intake Total 725 0 Output Total 75 Balance 650 0 Intake, IV 725 Intake, Oral 0 Output, Urine 75 Patient 136 lb Weight Weight Bed scale Measurement Method Physical Exam: Awake Comfortable No seizures and hospital but not hospital name Unable to give me medications that he takes Uncertain as to day of the week Fund of knowledge impaired Heart sounds normal no carotid bruits distal pulses intact Extraocular movements full pupils are very small and reactive Fundi could not be evaluated Visual jean grossly intact No facial weakness or facial sensory loss Tongue midline Shoulder shrug intact hearing grossly intact Normal tone and strength upper and lower extremities No sensory loss to light touch Deep tendon reflexes hypoactive throughout Coordinative functions upper extremities intact\ Attempted gait not made since unclear if patient walks unassisted Last 48 Hours of Lab Results: Laboratory Tests 11/11 11/11 1310 1015 Chemistry Troponin I Pending Urines Urine Color (YEL,AMB,STR) YEL Urine Clarity (CLEAR) HAZY H Urine pH (5.0 - 8.0) 6.5 Ur Specific Enc[place] (1.001 - 1.035) 1.025 Urine Protein (NEG,<30 MG/DL) NEG Urine Ketones (NEG) NEG Urine Nitrite (NEG) POS H Urine Bilirubin (NEG) NEG Urine Urobilinogen (0.1 - 1.0 EU/dl) 0.2 Ur Leukocyte Esterase (NEG) SMALL H Ur Microscopic SEDIMENT EXAMINED Urine RBC (0 - 5 /HPF) 1-3 Urine WBC (0 - 2 /HPF) 15-25 H Ur Epithelial Cells (NONE,FEW) RARE Urine Bacteria (NEG/NONE) MANY H Urine Hemoglobin (NEG) TRACE-LYSED H Urine Glucose (N MG/DL) NEG 11/11 0634 Chemistry Sodium (137 - 145 mmol/L) 146 H Potassium (3.5 - 5.1 mmol/L) 3.6 Chloride (98 - 107 mmol/L) 107 Carbon Dioxide (22 - 30 mmol/L) 31 H Anion Gap (5 - 16) 8 BUN (9 - 20 mg/dL) 13 Creatinine (0.7 - 1.2 mg/dL) 0.8 Estimated GFR (>60 ml/min) > 60 BUN/Creatinine Ratio (7 - 25 %) 16.3 Lactic Acid (0.7 - 2.1 mmol/L) < 0.5 L Magnesium (1.6 - 2.3 mg/dL) 1.8 Troponin I (<0.11 ng/ml) 0.07 TSH &T3 &Free T4 Intrp (0.27 - 4.20 uIU/mL) 1.200 Hematology CBC w Diff NO MAN DIFF REQ WBC (4.8 - 10.8 /CUMM) 8.5 RBC (4.70 - 6.10 /CUMM) 3.76 L Hgb (14.0 - 18.0 G/DL) 11.9 L Hct (42 - 52 %) 35.5 L MCV (80.0 - 94.0 FL) 94.5 H MCH (27.0 - 31.0 PG) 31.6 H MCHC (33.0 - 37.0 G/DL) 33.5 RDW (11.5 - 14.5 %) 15.4 H Plt Count (130 - 400 /CUMM) 152 MPV (7.4 - 10.4 FL) 7.8 Gran % (42.2 - 75.2 %) 71.9 Lymphocytes % (20.5 - 51.1 %) 18.5 L Monocytes % (1.7 - 9.3 %) 8.6 Eosinophils % (0 - 5 %) 0.6 Basophils % (0.0 - 2.0 %) 0.4 Absolute Granulocytes (1.4 - 6.5 /CUMM) 6.1 Absolute Lymphocytes (1.2 - 3.4 /CUMM) 1.6 Absolute Monocytes (0.10 - 0.60 /CUMM) 0.7 H Absolute Eosinophils (0.0 - 0.7 /CUMM) 0.1 Absolute Basophils (0.0 - 0.2 /CUMM) 0 11/10 11/10 2345 2232 Chemistry Sodium (137 - 145 mmol/L) 148 H Potassium (3.5 - 5.1 mmol/L) 3.7 Chloride (98 - 107 mmol/L) 103 Carbon Dioxide (22 - 30 mmol/L) 23 Anion Gap (5 - 16) 22 H BUN (9 - 20 mg/dL) 15 Creatinine (0.7 - 1.2 mg/dL) 1.1 Estimated GFR (>60 ml/min) > 60 BUN/Creatinine Ratio (7 - 25 %) 13.6 Glucose (65 - 99 mg/dL) 179 H Lactic Acid (0.7 - 2.1 mmol/L) 11.0 H Calcium (8.4 - 10.2 mg/dL) 9.5 Total Bilirubin (0.2 - 1.3 mg/dL) 0.3 AST (17 - 59 U/L) 32 ALT (21 - 72 U/L) 31 Alkaline Phosphatase (< 127 U/L) 90 Creatine Kinase (55 - 170 U/L) 140 Troponin I (<0.11 ng/ml) < 0.01 Total Protein (6.3 - 8.2 g/dL) 7.3 Albumin (3.5 - 5.0 g/dL) 4.2 Globulin (1.9 - 4.2 gm/dL) 3.1 Albumin/Globulin Ratio (1.1 - 2.2 %) 1.4 Prolactin (3.7 - 17.9 ng/mL) 21.0 H Hematology CBC w Diff NO MAN DIFF REQ WBC (4.8 - 10.8 /CUMM) 10.6 RBC (4.70 - 6.10 /CUMM) 4.29 L Hgb (14.0 - 18.0 G/DL) 13.3 L Hct (42 - 52 %) 41.0 L MCV (80.0 - 94.0 FL) 95.7 H MCH (27.0 - 31.0 PG) 30.9 MCHC (33.0 - 37.0 G/DL) 32.3 L RDW (11.5 - 14.5 %) 15.3 H Plt Count (130 - 400 /CUMM) 190 MPV (7.4 - 10.4 FL) 7.4 Gran % (42.2 - 75.2 %) 43.9 Lymphocytes % (20.5 - 51.1 %) 45.9 Monocytes % (1.7 - 9.3 %) 8.1 Eosinophils % (0 - 5 %) 1.5 Basophils % (0.0 - 2.0 %) 0.6 Absolute Granulocytes (1.4 - 6.5 /CUMM) 4.6 Absolute Lymphocytes (1.2 - 3.4 /CUMM) 4.8 H Absolute Monocytes (0.10 - 0.60 /CUMM) 0.9 H Absolute Eosinophils (0.0 - 0.7 /CUMM) 0.2 Absolute Basophils (0.0 - 0.2 /CUMM) 0.1 Toxicology Urine Opiates Screen (>2000 NG/ML) < 100 Methadone Screen (>300 NG/ML) 40 Barbiturate Screen (>200 NG/ML) < 60 Ur Phencyclidine Scrn (>25 NG/ML) < 6.00 Amphetamines Screen (>1000 NG/ML) 402 U Benzodiazepines Scrn (>200 NG/ML) < 85 Urine Cocaine Screen (>300 NG/ML) < 50 Urine Cannabis Screen (>50 NG/ML) < 5.00 Serum Alcohol (<10 MG/DL) < 10.0 Urines Urine Color (YEL,AMB,STR) YEL Urine Clarity (CLEAR) HAZY H Urine pH (5.0 - 8.0) 6.0 Ur Specific Enc[place] (1.001 - 1.035) >= 1.030 Urine Protein (NEG,<30 MG/DL) 30 H Urine Ketones (NEG) NEG Urine Nitrite (NEG) POS H Urine Bilirubin (NEG) NEG Urine Urobilinogen (0.1 - 1.0 EU/dl) 0.2 Ur Leukocyte Esterase (NEG) SMALL H Ur Microscopic SEDIMENT EXAMINED Urine RBC (0 - 5 /HPF) RARE Urine WBC (0 - 2 /HPF) 10-15 H Ur Epithelial Cells (NONE,FEW) RARE Urine Bacteria (NEG/NONE) MOD H Hyaline Casts (0/LPF) RARE H Urine Mucus (FEW,NONE) RARE Urine Hemoglobin (NEG) SMALL H Urine Glucose (N MG/DL) 100 H Imaging/Other Studies: CT Brain IMPRESSION: - No acute infarct, mass lesion, intracranial hemorrhage, or evidence of hydrocephalus. - Moderate small vessel ischemic changes. Assessment/Plan Assessment: seizure Recommendations: patient had witnessed convulsion likely seizure related to Alzheimer's suggest EEG discuss with family: consider treatment with levtiracetam, initial dose 250 BID; if tolerated, 500mg BID after 3-4 days watch for sedation and behaioral change Consult Acknowledgment - Thank you for your consult request.
--- NOTE | 2017-11-11 16:09 | ELECTROENCEPHALOGRAM REPORT ---
Electroencephalogram Report Electroencephalogram Results Date of service: 11/11/17 Attending MD: Pepper Mckeon MD Real Estate Operations Manager: Manas Carroll EEG Number: [id number] Test Utilizes: 10-20 system, 21 lead 18 channel digital recording Pertinent Hx/Physical/Neuro Findings/Clin Diagnosis: seizure Inpatient Medications: Current Medications Sig/Faizan Start time Last Medication Dose Route Stop Time Status Admin Alprazolam 0.25 MG ONCE ONE 11/11 1015 DC PO 11/11 1016 Donepezil HCl 10 MG DAILY 11/11 0900 AC 11/11 PO 0955 Enoxaparin Sodium 40 MG DAILY 11/11 09 AC 11/11 SC 0955 Latanoprost 1 GTT QPM 11/11 2100 AC OPH Levothyroxine Sodium 0.05 MG DAILY AC 11/11 0700 AC 11/11 PO 0955 Memantine 10 MG BID 11/11 0900 AC 11/11 PO 0955 Sodium Chloride 500 ML BOLUS ONE 11/11 0215 DC 11/11 IV 11/11 0314 0228 Sodium Chloride 1,000 ML Q13H 11/11 0215 DC 11/11 IV 0346 Interpretation: EEG obtained in the awake and drowsy states During wakefulness tobacco is medium voltage A cps activity maximal posteriorly Low-voltage 2021 cps activities and intermittent movement activities are seen frontally During drowsiness tobacco slows medium voltage 5-7 cps activity Photic stimulation induced no abnormalities No epileptiform activities are seen throughout the recording Impression: Normal EEG in awake and drowsy states
--- NOTE | 2017-11-11 16:09 | PN- Student ---
Subjective Subjective: Student H&P Sources: Patient (unreliable historian) and family (reliable) HPI: Patient is an 82 YOM who was in his usual state of health until yesterday when his family witnessed him having what appeared to be a siezure. The patient was sitting on the couch watching TV when he states he suddenly lost consciousness. His son was nearby and describes all four limbs extended and salvador rhythmically. The episode lasted about one minute, and there was no loss of continence and no biting of the tongue. Patient was somewhat disoriented and combative when he arrived in the ER, and he had to be placed in restraints for his own safety. The patient at various points said he had experienced shortness of breath and abdominal pain, but on subsequent questioning did not repeat these claims. He also denied any visual disturbances, dizziness, palpitations, or head trauma. The patient also complains of scrotal swelling, which is a known issue for which they see another doctor acording to his family. He also points out a handful of lesions on his scrotum and says he doesn't know what they are. The patient also describes having urgency - stating that he feels like he is about to "pee his pants" but when he gets to the bathroom almost nothing comes out. 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 SH: Denies current tobacco use (quit 30 years ago) Denies alcohol use Denies illicit drug use Objective Objective: On physical exam, the patient is resting comfortably in bed, alert and oriented, and speaking in full sentances. Strabismus and arcus senilis are noted in his eyes, as well as minor scleral icterus. His moucous membranes are pink and moist , voice is normal, and cranial nerves 2-12 are intact. Chest is clear to auscultation bilaterally. Heart sounds are distant but regular without apreciable MRG. Abdomen is soft, non-tender, and non-distended. He does have scrotal swelling with tenderness to palpation but no identifiable masses. There are a number of lesions that look similar to keloid scars on his scrotum. His legs are free of edema with palpable and equal DP/PT pulses. EKG showed NSR with RBBB consistent with old EKGs. Overnight telemetry showed NSR. First Troponin was negative, second troponin was 0.07. Initial laboratory values showed a lactic acidosis and elevated prolactin, both of which resolved overnight. He was also hypernatremic with a minor FERMIN that resolved with fluid administration. Urine dipstick was positive for N, LE, WBC, and Bacteria. A second urine dipstick on day 2 showed increased WBC and bacteria. Utox was negative. Urine culture is pending. Chest X-ray showed patchy consolidations bilaterally in the lower lobes. Head CT showed no pathological changes. Head MRI ws likewise largely benign aside from evidence of small vessel disease. Carotid dopler study showed bilateral 50% stenosis with plaques. Laboratory Tests 11/11/17 1310: Troponin I Pending 11/11/17 1015: Urine Color YEL, Urine Clarity HAZY H, Urine pH 6.5, Ur Specific Preston 1.025, Urine Protein NEG, Urine Ketones NEG, Urine Nitrite POS H, Urine Bilirubin NEG, Urine Urobilinogen 0.2, Ur Leukocyte Esterase SMALL H, Ur Microscopic SEDIMENT EXAMINED, Urine RBC 1-3, Urine WBC 15-25 H, Ur Epithelial Cells RARE, Urine Bacteria MANY H, Urine Hemoglobin TRACE-LYSED H, Urine Glucose NEG 11/11/17 0634: Anion Gap 8, Estimated GFR > 60, BUN/Creatinine Ratio 16.3, Lactic Acid < 0.5 L , Magnesium 1.8, Troponin I 0.07, TSH &T3 &Free T4 Intrp 1.200, CBC w Diff NO MAN DIFF REQ, RBC 3.76 L, MCV 94.5 H, MCH 31.6 H, MCHC 33.5, RDW 15.4 H, MPV 7.8, Gran % 71.9, Lymphocytes % 18.5 L, Monocytes % 8.6, Eosinophils % 0.6, Basophils % 0.4, Absolute Granulocytes 6.1, Absolute Lymphocytes 1.6, Absolute Monocytes 0.7 H, Absolute Eosinophils 0.1, Absolute Basophils 0 11/10/17 2345: Urine Opiates Screen < 100, Methadone Screen 40, Barbiturate Screen < 60, Ur Phencyclidine Scrn < 6.00, Amphetamines Screen 402, U Benzodiazepines Scrn < 85, Urine Cocaine Screen < 50, Urine Cannabis Screen < 5.00, Urine Color YEL, Urine Clarity HAZY H, Urine pH 6.0, Ur Specific Preston >= 1.030, Urine Protein 30 H , Urine Ketones NEG, Urine Nitrite POS H, Urine Bilirubin NEG, Urine Urobilinogen 0.2, Ur Leukocyte Esterase SMALL H, Ur Microscopic SEDIMENT EXAMINED, Urine RBC RARE, Urine WBC 10-15 H, Ur Epithelial Cells RARE, Urine Bacteria MOD H, Hyaline Casts RARE H, Urine Mucus RARE, Urine Hemoglobin SMALL H, Urine Glucose 100 H 11/10/172: Anion Gap 22 H, Estimated GFR > 60, BUN/Creatinine Ratio 13.6, Glucose 179 H, Lactic Acid 11.0 H, Calcium 9.5, Total Bilirubin 0.3, AST 32, ALT 31, Alkaline Phosphatase 90, Creatine Kinase 140, Troponin I < 0.01, Total Protein 7.3, Albumin 4.2, Globulin 3.1, Albumin/Globulin Ratio 1.4, Prolactin 21.0 H, CBC w Diff NO MAN DIFF REQ, RBC 4.29 L, MCV 95.7 H, MCH 30.9, MCHC 32.3 L, RDW 15.3 H, MPV 7.4, Gran % 43.9, Lymphocytes % 45.9, Monocytes % 8.1, Eosinophils % 1.5 , Basophils % 0.6, Absolute Granulocytes 4.6, Absolute Lymphocytes 4.8 H, Absolute Monocytes 0.9 H, Absolute Eosinophils 0.2, Absolute Basophils 0.1, Serum Alcohol < 10.0 Vital Signs Date Time Temp Pulse Resp B/P B/P Pulse O2 O2 Flow FiO2 Mean Ox Delivery Rate 11/11 1442 97.9 70 20 162/80 97 Nasal 3.0L Cannula 11/11 0800 99 Nasal 2.0L Cannula 11/11 0653 98.4 63 20 142/64 99 Nasal Cannula 11/11 0647 97.4 76 20 128/70 96 Room Air 11/11 0647 98.4 63 22 142/64 99 Room Air 11/11 0300 98.2 68 22 154/74 98 Nasal 2.0L Cannula 11/11 0247 98 Nasal 2.0L Cannula 11/11 0151 98.6 71 20 156/72 97 Nasal 2.0L Cannula 11/11 0003 68 20 133/69 98 Nasal 2.0L Cannula 11/10 2227 98.8 93 30 164/77 97 Room Air Intake & Output 11/11 1600 11/11 0800 11/11 0000 Intake Total 725 0 Output Total 75 Balance 650 0 Intake, IV 725 Intake, Oral 0 Output, Urine 75 Patient 136 lb Weight Weight Bed scale Measurement Method Assessment/Plan Assessment: 82 YOM with a PMH of Stroke, HTN, Dementia, Emphysema, Hypothyroid, and Glaucoma with the first occurance of a tonic/clonic seizure and a UTI. Problem 1: New onset of seizures Ddx: Alzheimers, Neoplasm, Meningitis, Global anoxia, Hyperthyroidism Neoplasms are effectively rulled out with negative imaging. Meningitis is unlikely due to lack of white count/fever, Hyperthyroidism was a possible etiology given his access to levothyroxine, however no other symptoms were present, and TSH was normal. Global anxoia 2/2 cardiac arythmia is a possibility , but no compelling evidence of cardiac disease has been found. Given his history of dementia, the possibility of seizures 2/2 alzheimers seems most likely. - Follow neurology recs regarding medication - Obtain EEG - Obtain Echocardiogram to complete cardiac workup Problem 2: Bacteruria with urgency, low urine output, and scrotal tenderness Ddx: Prostatitis, Epididymitis/Orchitis, Cystitis - Urine cultures are pending - Obtain scrotal US - Start empiric Ciprofloxacin 500mg Q12 - Hold Verapamil - Otherwise continue home meds
--- NOTE | 2017-11-11 16:50 | Cons- Cardiology ---
General Information and HPI Consulting Request Date of Consult: 11/11/17 Requested By: Mike FALK,Pepper History of Present Illness: Mr. Wei is an 82 year old male with history of hypertension, prior CVA, dementia and hypothyroidism. He also carries a history of COPD. This patient has baseline dementia with his MRA showing small vessel disease. According to family his memory and dementia have been progressing rapidly. It is noted that this patient is on Aricept to slow this progression. The patient himself cannot remember his age and cannot offer a cogent history although he knows that he has issues with shortness of breath. Yesterday, while watching TV, the patient was noted to be unresponsive with witnessed tremors. The family stated that he was short of breath. The patient reported stomach discomfort in the ER but could not elaborate on this. There was no incontinence. According to family he never complains of chest discomfort. In the ER the patient was found to have an elevated serum prolactin and elevated blood glucose. the patient was hypertensive with normal heart rate upon initial presentation. Allergies/Medications Allergies: Coded Allergies: NO KNOWN ALLERGIES (01/05/14) Home Med List: Brinzolamide (Azopt) 1 % DROPS.SUSP 1 GTT OPH BID GLUACOMA RIGHT SIDE ( Reported) Donepezil HCl 10 MG TABLET 1 TAB PO DAILY ALZHEIMERS (Reported) Fluticasone-Salmeterol (Advair 100-50 Diskus) 100 MCG-50 MCG/DOSE BLST.W.DEV 1 PUF INH BID EMPHYSEMA (Reported) Latanoprost 0.005 % DROPS 1 GTT OPH QPM GLUCOMA (Reported) Levothyroxine Sodium 50 MCG TABLET 1 TAB PO DAILY HYPOTHYROIDISM (Reported) Memantine HCl (Namenda) 10 MG TABLET 1 TAB PO BID ALZHEIMERS (Reported) Verapamil HCl (Verapamil ER) 240 MG CAP24H.PEL 1 CAP PO DAILY HYPERTENSION ( Reported) Review of Systems Review of Systems: Unobtainable. Past History Travel History Traveled to [place] past 21 day No Medical History Blood Transfusion Hx: No Neurological: STROKE Cardiovascular: hypertension Respiratory: EMPHESYMA Psychiatric: DEMENTIA Endocrine: HYPOTHYROID Surgical History Surgical History: non-contributory Psychosocial History Where Do You Live? Home Services at Home: None Smoking Status: Former Smoker ETOH Use: Prior heavy use. Exam & Diagnostic Data Vital Signs and I&O Vital Signs Date Time Temp Pulse Resp B/P B/P Pulse O2 O2 Flow FiO2 Mean Ox Delivery Rate 11/11 1442 97.9 70 20 162/80 97 Nasal 3.0L Cannula 11/11 0800 99 Nasal 2.0L Cannula 11/11 0653 98.4 63 20 142/64 99 Nasal Cannula 11/11 0647 97.4 76 20 128/70 96 Room Air 11/11 0647 98.4 63 22 142/64 99 Room Air 11/11 0300 98.2 68 22 154/74 98 Nasal 2.0L Cannula 11/11 0247 98 Nasal 2.0L Cannula 11/11 0151 98.6 71 20 156/72 97 Nasal 2.0L Cannula 11/11 0003 68 20 133/69 98 Nasal 2.0L Cannula 11/10 2227 98.8 93 30 164/77 97 Room Air Intake & Output 11/11 1600 11/11 0800 11/11 0000 11/10 1600 11/10 0800 11/10 0000 Intake Total 400 725 0 Output Total 300 75 Balance 100 650 0 Intake, IV 725 Intake, Oral 400 0 Output, Urine 300 75 Patient 136 lb Weight Weight Bed scale Measurement Method Physical Exam: General: WD/WN male in NAD; awake and responsive, decreased memory HEEnT: NC/AT, PERRL, EOMI Neck: no JVD, no carotid bruit Heart: RRR w/o murmur Lungs: decreased air movement bilaterally, no crackles or wheezing Abdomen: soft, NT, +ve bowel sounds Extremities: no edema Assessment/Plan Assessment/Plan * This patient has both dementia and a witnessed seizure. It is reasonable to begin Keppra for seizure prophylaxis. If this patient has had other unwitnessed or unappreciated seizures then some of his mental status changes may have been related to a post ictal state. * In regard to the cause of his seizures, it is possible that they may be elicited by decreased cerebral perfusion. It is noted that this patient is on both verapamil and Aricept. Both of these medications can cause bradycardia. I would stop the Aricept which may not be beneficial if the patient's dementia is related to his small vessel disease. Monitor on telemetry for bradycardia. If this is found then a change to Nifedipine would be appropriate to control his pressure without causing bradycardia. Check a TSH and free T4. * Hypoxic episodes in the setting of COPD may also be a cause of seizure. Obtain an echocardiogram to assess his RV pressures as well as his overall EF and cardiac function. Check an ABG. * This patient has shortness of breath that may be related to lung disease, heart disease or both. Again, I would pursue an echocardiogram and would risk stratify with a treadmill nuclear stress test prior to discharge. Begin aspirin 162mg daily. Check a lipid profile. Begin Lisinopril 20mg daily. Consult Acknowledgment - Thank you for your consult request.
--- NOTE | 2017-11-11 17:08 | ECHOCARDIOGRAM REPORT ---
HAYES KIM Age: 82 : 1935 Gender: M Exam Date: 11/11/2017 09:18 Exam Location: 1 [address] Ht (in): 65 Wt (lb): 136 BSA: 1.69 BP: 142 / 64 Ordering Physician: Winsome Mane MD Referring Physician: Winsome Mane MD Technologist: Dar Mtahias [facility] Room Number: 176-1 Indications: LIGHTHEADEDNESS Rhythm: Sinus Technical Quality: good FINDINGS Left Ventricle Normal left ventricular size, wall thickness and systolic function with no obvious regional wall motion abnormalities. Diastolic filling pattern is consistent with impaired LV relaxation. The ejection fraction is visually estimated at 60%. Right Ventricle The right ventricle is normal in size and function. Right Atrium The right atrium is normal in size. Left Atrium The left atrium is normal in size. The interatrial septum is intact. Mitral Valve The mitral valve is normal in structure and function. There is no mitral regurgitation. Aortic Valve Structurally normal aortic valve without significant sclerosis or stenosis. There isno aortic regurgitation. Tricuspid Valve The tricuspid valve is normal in structure and function. There is trace tricuspid regurgitation. Pulmonic Valve Structurally normal pulmonic valve. There is no pulmonic regurgitation. Pericardium Normal pericardium without effusion. No pleural effusion. Great Vessels Normal aortic root dimension. The aortic arch and great vessels are well seen and are normal. CONCLUSIONS 1. Normal EF of 60% with impaired LV relaxation. 2. Trace tricuspid regurgitation. Selwyn Juares M.D. (Electronically Signed) Final Date: 11 November 2017 17:08 MEASUREMENTS (Male / Female) Normal Values 2D ECHO LV Diastolic Diameter PLAX 5.1 cm 4.2 - 5.9 / 3.9 - 5.3 cm LV Systolic Diameter PLAX 3.1 cm 2.1 - 4.0 cm LV Fractional Shortening PLAX 39.2 % 25 - 46 % LV Ejection Fraction 2D Teich 69.4 % IVS Diastolic Thickness 1.0 cm LVPW Diastolic Thickness 1.0 cm LV Relative Wall Thickness 0.4 RV Internal Dim ED PLAX 2.5 cm 1.9 - 3.8 cm LVOT Diameter 2.2 cm Aortic Root Diameter 3.9 cm LA Systolic Diameter LX 2.6 cm 3.0 - 4.0 / 2.7 - 3.8 cm LA Volume 52.0 cm 18 - 58 / 22 - 52 cm DOPPLER AV Peak Velocity 136.0 cm/s AV Peak Gradient 7.4 mmHg AV Mean Velocity 91.1 cm/s AV Mean Gradient 4.0 mmHg AV Velocity Time Integral 25.9 cm LVOT Peak Velocity 97.0 cm/s LVOT Peak Gradient 3.8 mmHg LVOT Mean Velocity 60.3 cm/s LVOT Mean Gradient 2.0 mmHg LVOT Velocity Time Integral 19.3 cm LVOT Stroke Volume 73.4 cm AV Area Cont Eq vti 2.8 cm AV Area Cont Eq pk 2.7 cm MV Peak Velocity 128.0 cm/s MV Peak Gradient 6.6 mmHg MV Mean Velocity 57.2 cm/s MV Mean Gradient 2.0 mmHg Mitral E Point Velocity 67.6 cm/s Mitral A Point Velocity 117.0 cm/s Mitral E to A Ratio 0.6 MV PHT Velocity 74.7 cm/s MV Deceleration Green 150.0 cm/s MV Pressure Half Time 149.4 ms MV Area PHT 1.5 cm MV Deceleration Time 359.0 ms PV Peak Velocity 106.0 cm/s PV Peak Gradient 4.5 mmHg PV Mean Velocity 67.8 cm/s PV Mean Gradient 2.0 mmHg PV Velocity Time Integral 20.9 cm
--- NOTE | 2017-11-11 17:21 | ULTRASOUND REPORT ---
EXAMINATION: US SCROTUM CLINICAL INFORMATION: Tender scrotum. Presumptive diagnosis of hydrocele and epididymitis. COMPARISON: Testicular ultrasound dated 12/15/2014. TECHNIQUE: A sonogram of the scrotum was performed assessing self-scale appearance and color Doppler flow. Spectral analysis and Doppler interrogation was performed. FINDINGS: RIGHT: Right testicle measures 4.1 x 1.9 x 2.1 cm, volume 11.6 mL. Parenchymal echotexture is normal. No focal testicular parenchymal lesions are visualized. Normal symmetric intratesticular flow is visualized. Right epididymal head is normal in size. There is a 0.4 x 0.3 x 0.5 cm epididymal head cyst seen. No right hydrocele or varicocele is seen. LEFT: Left testicle measures 3.7 x 1.9 x 2.4 cm, volume 12.0 mL. Parenchymal echotexture is normal. No focal testicular parenchymal lesions are visualized. Normal symmetric intratesticular flow is visualized. Left epididymal head is normal in size. Again seen is a large left scrotal hydrocele with low-level internal echoes, measuring at least 10.1 x 4.0 x 7.8 cm, similar to the prior exam. In the scrotal fluid peripherally, 2 small centrally calcified nodular densities in areas is seen, measuring 0.9 x 0.8 x 0.9 cm and 0.6 x 0.6 x 0.6 cm, similar to the prior exam and most consistent with scrotal pearls. No left varicocele is seen. IMPRESSION: 1. Bilaterally normal testicles with no evidence of epididymoorchitis or testicular torsion. 2. Large left scrotal hydrocele, similar to prior exam. 3. Two small scrotal pearls are seen within the periphery of the left hemiscrotum, unchanged from prior exam. 4. Small right epididymal head cyst.
[2017-11-11 17:59] VITALS: BP 178/90
[2017-11-11 21:48] VITALS: BP 166/88
[2017-11-12 06:31] VITALS: BP 156/90
--- NOTE | 2017-11-12 07:08 | PN- Housestaff ---
Martha FALK,Leisa 11/12/17 0707: Subjective Follow-up For: New-onset seizure like activities Rule out syncope Tele-Events Since Last Visit: Normal sinus rhythm, no overnight events, BBB Subjective: Patient was seen and examined at bedside, he complains of increase the pressure and pain in the lower part of his abdomen and inability to urinate. In addition he also complains of shortness of breath, would be going today for stress test Review of Systems Constitutional: Reports: see HPI. Objective Last 24 Hrs of Vital Signs/I&O Vital Signs Date Time Temp Pulse Resp B/P B/P Pulse O2 O2 Flow FiO2 Mean Ox Delivery Rate 11/12 0820 100 156/90 11/12 0800 94 Nasal 2.0L Cannula 11/12 0631 97.7 101 20 156/90 93 Nasal Cannula 11/12 0000 Nasal 1.0L Cannula 11/11 2148 97.0 77 20 166/88 98 Nasal Cannula 11/11 1759 98.1 77 20 178/90 97 Nasal Cannula 11/11 1600 94 Nasal 2.0L Cannula 11/11 1442 97.9 70 20 162/80 97 Nasal 3.0L Cannula Intake & Output 11/12 1600 11/12 0800 11/12 0000 Intake Total 50 100 Output Total 50 300 Balance 0 -200 Intake, Oral 50 100 Output, Urine 50 300 Patient 154 lb Weight Weight Bed scale Measurement Method Physical Exam General Appearance: Alert, Oriented X3, Cooperative, No Acute Distress HEENT: Atraumatic, PERRLA, EOMI, Mucous Membr. moist/pink Cardiovascular: Normal S1, Normal S2, No Murmurs Lungs: Clear to Auscultation Abdomen: Normal Bowel Sounds, Soft Neurological: Normal Speech, Strength at 5/5 X4 Ext, Normal Tone, Sensation Intact, Cranial Nerves 3-12 NL Extremities: No Clubbing, No Cyanosis, No Edema Vascular: Normal Pulses Assessment/Plan Assessment: 82-year-old male with PMH of dementia, emphysema, hypertension, hypothyroidism, glaucoma, previous history of stroke, presented in ER for seizure-like activity. According to description it appears that patient may have to tonic-clonic seizure at home and loss of consciousness. Patient regained consciousness immediately after the episode and did not have any residual weakness or confusion. On admission he had significant lactic acidosis which quickly resolved with making it most likely due to the seizure. -Seizure like activitynew onset at the age of 82 -? syncope - Lactic acidosis -resolved- -testicular pain and swelling (possible hydrocele) -History of HTN, hypothyroidism, dementia, glaucoma, history of CVA, COPD, neck surgery - Continuous telemetry monitoring Continue Keppra 250 twice daily, and the patient tolerated well with no behavioral changes or suppression, will increase the dose to 500 - Serial neuro checks - Seizure precautions - When necessary Ativan for any repeat episode of seizure - If patient has seconds seizure episode then start Keppra 500 mg twice a day - MRI brain with and without contrast showed moderate small vessel ischemic changes, no acute infarction or mass lesion - EEG was normal - ultrasound carotid: No significant stenosis - testicular ultrasound showed large left hydrocele and 2 small sclerosis appearance unchanged from before, small right epididymal head cyst -echocardiogram was normal - Serial troponin ECGs were negative which ruled out ACS -Follow-up on stress test -Check ABG in a.m., if PCO2 is above 60 with consider BiPAP -TRC and nebs - Cardiology recommendation appreciated - Neuro recommendation appreciated DNR/DNI regular diet dvt px with lovenox Problem List: 1. Seizure Pain Ratin Pain Location: n/a Pain Goal: Remain pain free Pain Plan: PATHWAY Tomorrow's Labs & Rationales: CBC BEP ABG MikePepper 11/12/17 1104: Attending MD Review Statement Attending Statement Attending MD Statement: examined this patient, discuss w/resident/PA/OPERATOR AND TRUCK DRIVER, agreed w/resident/PA/OPERATOR AND TRUCK DRIVER, discussed with family, reviewed EMR data (avail), discussed with nursing, discussed with case mgmt, reviewed images, amended to note Attending Assessment/Plan: Patient seen/examined bedside. PMH of dementia and hydrocele follow PCP as outpatient brought in by ambulance after founbd to have seizure like activity. Son bedside who is primary caregiver. Plan for stress test as per cardiology today, no complaints. vitals stable. Patient admitted to telemetry for dementia related seizure disorder. Appreciate cardiology and neurology inputs. Troponin negative. ECHO with no significant abnormality, MRI brain with no acute pathology. EEG with no abnormal study. Started on AED for seizure prophyalxis 250 bid as per neurology for dementia related seizures. COPD on home oxygen, [facility] Hypernatrmeia resolved Dementia provide supportive care Hydrocele with urinalysis abnormal, f/u culture. USG scrotum with no acute pathology. Follows Dr Fuentes as outpatient.
[2017-11-12 07:54] LABS: ABSOLUTE BASOPHIL COUNT 0 /CUMM (0.0-0.2); ABSOLUTE EOSINOPHIL COUNT 0.2 /CUMM (0.0-0.7); ABSOLUTE GRANULOCYTE CT 6.3 /CUMM (1.4-6.5); ABSOLUTE LYMPH COUNT 1.1 /CUMM (1.2-3.4); ABSOLUTE MONOCYTE COUNT 0.8 /CUMM (0.10-0.60); BASOPHIL % 0.4 % (0.0-2.0); EOSINOPHIL % 2.5 % (0-5); GRANULOCYTE % 74.7 % (42.2-75.2); HEMATOCRIT 36.7 % (42-52); MEAN CORPUSCULAR HGB 31.9 PG (27.0-31.0); MEAN CORPUSCULAR HGB CONC 33.9 G/DL (33.0-37.0); MEAN CORPUSCULAR VOLUME 94.1 FL (80.0-94.0); MEAN PLATELET VOLUME 7.8 FL (7.4-10.4); PLATELET COUNT 145 /CUMM (130-400); WHITE BLOOD CELL COUNT 8.4 /CUMM (4.8-10.8)
--- NOTE | 2017-11-12 09:31 | Cons- Pulmonary ---
General Information and HPI Consulting Request Date of Consult: 11/12/17 Requested By: Family, medical team Reason for Consult: hx of COPD Source of Information: patient, family, old records Exam Limitations: clinical condition History of Present Illness: 82 year old man. Consultation for a history of COPD per chart/family on home oxygen. Establish care and chronic hypoxemic respiratory failure. 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 Pt is hospitalized for witnessed shaking activity concerning for seizure. No previous episodes. One time event. No biting of tongue or incontinence. No cp, HAYDEN. At home uses walker but independent. ABG - 7.33/ CXR with patchy lower lung field consolidation/chronic changes At home on Advair, however only once daily. ECHO normal EF 60%, impaired LV relaxation. No n/v/d/c, currently no alegria, no cp, no dypsnea at rest, minimal non-productive cough. No rashes, no abdominal pain, no vision changes, no further tremors. Allergies/Medications Allergies: Coded Allergies: NO KNOWN ALLERGIES (01/05/14) Home Med List: Aspirin (Aspirin*) 81 MG TAB.CHEW 162 MG PO DAILY [facility] HEALTH Brinzolamide (Azopt) 1 % DROPS.SUSP 1 GTT OPH BID GLUACOMA RIGHT SIDE ( Reported) Donepezil HCl 10 MG TABLET 1 TAB PO DAILY ALZHEIMERS (Reported) Fluticasone-Salmeterol (Advair 100-50 Diskus) 100 MCG-50 MCG/DOSE BLST.W.DEV 1 PUF INH BID EMPHYSEMA (Reported) Latanoprost 0.005 % DROPS 1 GTT OPH QPM GLUCOMA (Reported) Levetiracetam 250 MG TABLET 250 MG PO BID SEIZURES Levothyroxine Sodium 50 MCG TABLET 1 TAB PO DAILY HYPOTHYROIDISM (Reported) Lisinopril 20 MG TABLET 20 MG PO DAILY HIGH BLOOD PRESSURE Memantine HCl (Namenda) 10 MG TABLET 1 TAB PO BID ALZHEIMERS (Reported) Verapamil HCl (Verapamil ER) 240 MG CAP24H.PEL 1 CAP PO DAILY HYPERTENSION ( Reported) Current Medications: Current Medications Sig/Faizan Start time Last Medication Dose Route Stop Time Status Admin Alprazolam 0.25 MG ONCE ONE 11/11 1015 DC 11/11 PO 11/11 1016 1000 Aspirin 162 MG DAILY 11/11 1715 AC 11/12 PO 0819 Donepezil HCl 10 MG DAILY 11/11 0900 DC 11/11 PO 0955 Enoxaparin Sodium 40 MG DAILY 11/11 0900 AC 11/12 SC 0820 Latanoprost 1 GTT QPM 11/11 2100 AC 11/11 OPH 2205 Levetiracetam 250 MG BID 11/11 1715 AC 11/12 PO 0820 Levothyroxine Sodium 0.05 MG DAILY AC 11/11 0700 AC 11/12 PO 0521 Lisinopril 20 MG DAILY 11/12 0900 AC 11/12 PO 0820 Melatonin 5 MG AT BEDTIME 11/11 2100 AC 11/11 PO 2205 Memantine 10 MG BID 11/11 0900 AC 11/12 PO 0821 Review of Systems Comments 18 point review of systems was performed and reviewed. Please see pertinent positives and pertinent negatives in the HPI. Otherwise ROS is negative. Past History Travel History Traveled to [place] past 21 day No Medical History Blood Transfusion Hx: No Neurological: STROKE Cardiovascular: hypertension Respiratory: EMPHESYMA Psychiatric: DEMENTIA Endocrine: HYPOTHYROID Surgical History Surgical History: non-contributory Family History Relations & Conditions If Any: Relation not specified for: *No pertinent family history Psychosocial History Where Do You Live? Home Services at Home: None Smoking Status: Former Smoker ETOH Use: Prior heavy use. Exam & Diagnostic Data Last 24 Hrs of Vital Signs/I&O Vital Signs Date Time Temp Pulse Resp B/P B/P Pulse O2 O2 Flow FiO2 Mean Ox Delivery Rate 11/12 0820 100 156/90 11/12 0800 94 Nasal 2.0L Cannula 11/12 0631 97.7 101 20 156/90 93 Nasal Cannula 11/12 0000 Nasal 1.0L Cannula 11/11 2148 97.0 77 20 166/88 98 Nasal Cannula 11/11 1759 98.1 77 20 178/90 97 Nasal Cannula 11/11 1600 94 Nasal 2.0L Cannula 11/11 1442 97.9 70 20 162/80 97 Nasal 3.0L Cannula Intake & Output 11/12 1600 11/12 0800 11/12 0000 Intake Total 50 100 Output Total 50 300 Balance 0 -200 Intake, Oral 50 100 Output, Urine 50 300 Patient 154 lb Weight Weight Bed scale Measurement Method Physical Exam Other Physical Findings: gen-awake and alert, comfortable heent-ncat cvs-s1,s2 lungs diminished bs bilaterally, bibasilar rhonchi abd-soft, bs+ ext without edema, + dry skin Last 48 Hrs of Labs/Rocky: Laboratory Tests 11/12/17 0849: Urine Color Cancelled, Urine Clarity Cancelled, Urine pH Cancelled, Ur Specific [employer] Cancelled, Urine Protein Cancelled, Urine Ketones Cancelled, Urine Nitrite Cancelled, Urine Bilirubin Cancelled, Urine Urobilinogen Cancelled, Ur Leukocyte Esterase Cancelled, Ur Microscopic Cancelled, Urine Hemoglobin Cancelled, Urine Glucose Cancelled 11/12/17 0610: Anion Gap 10, Estimated GFR > 60, BUN/Creatinine Ratio 11.3, Triglycerides 48, Cholesterol 136, LDL Cholesterol, Calc 78, HDL Cholesterol 49, Cholesterol/HDL Ratio 3, CBC w Diff NO MAN DIFF REQ, RBC 3.90 L, MCV 94.1 H, MCH 31.9 H, MCHC 33.9, RDW 15.0 H, MPV 7.8, Gran % 74.7, Lymphocytes % 13.1 L, Monocytes % 9.3, Eosinophils % 2.5, Basophils % 0.4, Absolute Granulocytes 6.3, Absolute Lymphocytes 1.1 L, Absolute Monocytes 0.8 H, Absolute Eosinophils 0.2, Absolute Basophils 0 11/11/172045: pH 7.33 L, pCO2 61 *H, pO2 79 L, HCO3 32 H, ABG O2 Sat (Measured) 95.0 L, Carboxyhemoglobin 0.4 L, O2 Concentration % RA, O2 Delivery Method RA, Phlebotomy Draw Site LEFT RADIAL 11/11/172044: pH Pending, pCO2 Pending, pO2 Pending, HCO3 Pending, ABG O2 Sat (Measured) Pending, P-50 (Temp Corrected) Pending, Carboxyhemoglobin Pending, O2 Concentration % Pending, Temperature Pending, O2 Delivery Method Pending, Phlebotomy Draw Site Pending 11/11/17 1310: Troponin I 0.05 11/11/17 1015: Urine Color YEL, Urine Clarity HAZY H, Urine pH 6.5, Ur Specific [employer] 1.025, Urine Protein NEG, Urine Ketones NEG, Urine Nitrite POS H, Urine Bilirubin NEG, Urine Urobilinogen 0.2, Ur Leukocyte Esterase SMALL H, Ur Microscopic SEDIMENT EXAMINED, Urine RBC 1-3, Urine WBC 15-25 H, Ur Epithelial Cells RARE, Urine Bacteria MANY H, Urine Hemoglobin TRACE-LYSED H, Urine Glucose NEG 11/11/17 0634: Anion Gap 8, Estimated GFR > 60, BUN/Creatinine Ratio 16.3, Lactic Acid < 0.5 L , Magnesium 1.8, Troponin I 0.07, Free T4 1.03, Total T3 1.08, TSH &T3 &Free T4 Intrp 1.200, CBC w Diff NO MAN DIFF REQ, RBC 3.76 L, MCV 94.5 H, MCH 31.6 H, MCHC 33.5, RDW 15.4 H, MPV 7.8, Gran % 71.9, Lymphocytes % 18.5 L, Monocytes % 8.6, Eosinophils % 0.6, Basophils % 0.4, Absolute Granulocytes 6.1, Absolute Lymphocytes 1.6, Absolute Monocytes 0.7 H, Absolute Eosinophils 0.1, Absolute Basophils 0 11/10/17 2345: Urine Opiates Screen < 100, Methadone Screen 40, Barbiturate Screen < 60, Ur Phencyclidine Scrn < 6.00, Amphetamines Screen 402, U Benzodiazepines Scrn < 85, Urine Cocaine Screen < 50, Urine Cannabis Screen < 5.00, Urine Color YEL, Urine Clarity HAZY H, Urine pH 6.0, Ur Specific [employer] >= 1.030, Urine Protein 30 H , Urine Ketones NEG, Urine Nitrite POS H, Urine Bilirubin NEG, Urine Urobilinogen 0.2, Ur Leukocyte Esterase SMALL H, Ur Microscopic SEDIMENT EXAMINED, Urine RBC RARE, Urine WBC 10-15 H, Ur Epithelial Cells RARE, Urine Bacteria MOD H, Hyaline Casts RARE H, Urine Mucus RARE, Urine Hemoglobin SMALL H, Urine Glucose 100 H 11/10/17 2232: Anion Gap 22 H, Estimated GFR > 60, BUN/Creatinine Ratio 13.6, Glucose 179 H, Lactic Acid 11.0 H, Calcium 9.5, Total Bilirubin 0.3, AST 32, ALT 31, Alkaline Phosphatase 90, Creatine Kinase 140, Troponin I < 0.01, Total Protein 7.3, Albumin 4.2, Globulin 3.1, Albumin/Globulin Ratio 1.4, Prolactin 21.0 H, CBC w Diff NO MAN DIFF REQ, RBC 4.29 L, MCV 95.7 H, MCH 30.9, MCHC 32.3 L, RDW 15.3 H, MPV 7.4, Gran % 43.9, Lymphocytes % 45.9, Monocytes % 8.1, Eosinophils % 1.5 , Basophils % 0.6, Absolute Granulocytes 4.6, Absolute Lymphocytes 4.8 H, Absolute Monocytes 0.9 H, Absolute Eosinophils 0.2, Absolute Basophils 0.1, Serum Alcohol < 10.0 Assessment/Plan Impression/Plan: Impression 82 year old man * witnessed seizure activity * COPD clinically diagnosed Plan -continue management per primary team and cardiology -with respect to pulmonary issues - the patient seems that he can attempt a PFT on an outpatient basis to determine severity and nature of lung disease -given his hypercarbia after an acute event - would repeat an ABG first thing in am 11/13, if pco2 is above 60, the patient may benefit from bipap therapy, he may very well have DAMIEN and a consideration for a sleep study is reasonable and will be discussed -with respect to his inhalers please order a TRC evaluation and nebulizer treatments as needed -he is on Advair at home, this may need to be changed, but prior to change, continue it, just ensure that it is used BID with rinsing of the mouth vs once daily, it does not need to be started inpatient, but can ask pharmacy if patient can bring his own med -would not initiate symbicort inpatient due to potential addition to confusion of proper inhaler use as he is not going to require symbicort upon discharge DVT prophylaxis at all times D/w family at bedside Consult Acknowledgment - Thank you for your consult request.
[2017-11-12] MEDS ORDERED: LEVETIRACETAM250 M1 PO (10:10)
[2017-11-12] MEDS ORDERED: LISINOPRIL20 M1 PO (10:10)
[2017-11-12] MEDS ORDERED: ASPIRIN81 M4 PO (10:10)
[2017-11-12 14:12] VITALS: BP 118/60
--- NOTE | 2017-11-12 16:32 | IV DIPYRIDAMOLE NUCLEAR STRESS ---
Clinical Diagnosis: Hypertension Dental Billing Specialist: Ángel Araujo IV DIPYRIDAMOLE INFUSED: 40 mg IV AMINOPHYLLINE INFUSED: 0 mg PATIENT WEIGHT: 154 lbs INTERPRETATION: The patient's baseline EKG showed normal sinus rhythm with right bundle branch block and left anterior fascicular block at 74 BPM. Baseline B/P 124/76. The patient received 40 mg of dipyridamole infused intravenously over a 4 minute period. TC99M Myoview was injected after dipyridamole infusion. The patient tolerated the infusion well. There were no EKG changes seen following pharmacologic infusion. Arrhythmias: Rare PVC IMPRESSION: The test was supervised by the interpreting Orthopedic Radiologic Technologist, who was in attendance during the entire test. No EKG evidence of stress induced myocardial ischemia. See separately dictated Nuclear Report.
--- NOTE | 2017-11-12 17:17 | NUCLEAR MEDICINE REPORT ---
PERSANTINE STRESS AND RESTING SPECT MYOCARDIAL PERFUSION IMAGING STUDY WITH GATED SPECT IMAGES: CLINICAL INDICATION: Hypertension, coronary artery disease. PROCEDURE: Regional myocardial perfusion was assessed using a 1 day protocol. Stress images were obtained on 11/12/2017 following the intravenous administration of 19.7 mCi Tc 99m Myoview. Stress consisted of 40 mg Persantine given intravenously. Following the sestamibi injection, no aminophylline was given intravenously. Rest images were obtained 11/12/2017 following the intravenous administration of a 2.1 mCi Technetium 99m Myoview. Single photon emission tomographic (SPECT) images were obtained. SPECT images were acquired in a 64 x 64 matrix of 64 projections over 180 degrees. These were reconstructed into standard short axis, horizontal and vertical long axis cardiac projections. FINDINGS: The post stress images show the left ventricular chamber to be normal in size. There is moderately to markedly diminished activity in a moderately sized region that extends from the apex into the apical septal and mid inferoseptal ross. Activity in the other ross appears normal. The rest images show show some improved perfusion compared to the post stress images, particularly in the apical inferior oral and at the apex, but a small to moderately sized perfusion abnormality persists at the site of the larger abnormality in this region present on the post stress images. The images were obtained using a gated SPECT technique, which permits visualization of wall motion and calculation of the left ventricular ejection fraction. Left ventricular chamber is normal in size. No left ventricular wall motion abnormalities are present. The calculated left ventricular ejection fraction is 48% on the stress study. No previous study is available for comparison. IMPRESSION: Abnormal study. A moderately sized partially reversible perfusion abnormality is present involving the apex and adjacent apical inferior, apical septal, and mid inferoseptal ross. Left ventricular wall motion and ejection fraction are normal.
--- NOTE | 2017-11-12 17:47 | Event Note ---
Event Note Event Note: Called and informed Dr. Juares of the findings on the nuclear stress test: Abnormal study. A moderately sized partially reversible perfusion abnormality is present involving the apex and adjacent apical inferior,apical septal, and mid inferoseptal ross. Patient to be started on statin and metoprolol 25mg BID.
--- NOTE | 2017-11-12 18:12 | PN- Cardiology ---
Subjective Subjective: * Patient is more alert and without complaints of chest discomfort, shortness of breath, lightheadedness or palpitations. He noted a transient left lower abdominal discomfort at the time of his nuclear imaging this morning. * No dysrhythmias * inferoapical ischemia noted on stress test Objective Vital Signs and I&Os Vital Signs Date Time Temp Pulse Resp B/P B/P Pulse O2 O2 Flow FiO2 Mean Ox Delivery Rate 11/12 1600 96 Room Air Room Air 11/12 1412 97.7 96 22 118/60 93 Nasal 2.0L Cannula 11/12 1347 94 Nasal 1.0L Cannula 11/12 1344 Nasal 1.0L Cannula 11/12 0820 100 156/90 11/12 0800 94 Nasal 2.0L Cannula 11/12 0631 97.7 101 20 156/90 93 Nasal Cannula 11/12 0000 Nasal 1.0L Cannula 11/11 2148 97.0 77 20 166/88 98 Nasal Cannula Intake & Output 11/12 1600 11/12 0800 11/12 0000 11/11 1600 11/11 0800 11/11 0000 Intake Total 300 50 100 400 725 0 Output Total 400 50 300 300 75 Balance -100 0 -200 100 650 0 Intake, IV 725 Intake, Oral 300 50 100 400 0 Output, Urine 400 50 300 300 75 Patient 154 lb 136 lb Weight Weight Bed scale Bed scale Measurement Method Physical Exam: General: WD/WN male in NAD; awake and responsive, decreased memory HEEnT: NC/AT, PERRL, EOMI Neck: no JVD, no carotid bruit Heart: RRR w/o murmur Lungs: decreased air movement bilaterally, no crackles or wheezing Abdomen: soft, NT, +ve bowel sounds Extremities: no edema Assessment/Plan Assessment/Plan * This patient likely has had multiple seizures in the recent past. He reports shaking to his family and he has had intermittent mental status changes that are beyond his baseline suggestive of a post-ictal state. * This patient also has COPD with hypercarbic respiratory failure. PFT's are planned as an outpatient with a repeat ABG planned for tomorrow. Dr. Vee is following. * No evidence of any significant cardiac dysrhythmia but blood pressure is not consistently well controlled off of Verapamil. We will reassess his BP tomorrow as his serum Verapamil level decreases and will assess the need for additional antihypertensives. * This patient has a small amount of ischemia in the inferior wall. I will review these images tomorrow. For now we will begin a beta abad, i.e. Metoprolol 25mg BID and a statin. Continue aspirin. Continue telemetry? Yes
[2017-11-12 22:14] VITALS: BP 128/70
[2017-11-13 06:27] VITALS: BP 126/62
--- NOTE | 2017-11-13 07:14 | PN- Housestaff ---
Martha FALK,Leisa 11/13/17 0714: Subjective Follow-up For: New-onset seizure like activities Rule out syncope Tele-Events Since Last Visit: Normal sinus rhythm, no overnight events, BBB Subjective: Patient was seen and examined still complaining of dysuria and frequency, he also complains of weakness and fatigue, stress test showed reversible lesion yesterday, waiting for cardiology input regarding cardiac cath Review of Systems Constitutional: Reports: see HPI. Objective Last 24 Hrs of Vital Signs/I&O Vital Signs Date Time Temp Pulse Resp B/P B/P Pulse O2 O2 Flow FiO2 Mean Ox Delivery Rate 11/13 0800 94 Nasal 2.0L Cannula 11/13 0757 90 126/62 11/13 0756 90 126/62 11/13 0627 98.7 79 26 126/62 92 Nasal Cannula 11/12 2214 98.9 92 26 128/70 87 Nasal 1.0L Cannula 11/12 2107 Nasal 0.5L Cannula 11/12 2048 100 130/78 11/12 1838 84 Room Air 11/12 1600 96 Room Air Room Air 11/12 1412 97.7 96 22 118/60 93 Nasal 2.0L Cannula 11/12 1347 94 Nasal 1.0L Cannula 11/12 1344 Nasal 1.0L Cannula Intake & Output 11/13 1600 11/13 0800 11/13 0000 Intake Total 200 220 Output Total 125 75 Balance 75 145 Intake, Oral 200 220 Output, Urine 125 75 Patient 151 lb Weight Physical Exam General Appearance: Alert, Oriented X3, Cooperative, No Acute Distress HEENT: Atraumatic, PERRLA, EOMI, Mucous Membr. moist/pink Cardiovascular: Normal S1, Normal S2, No Murmurs Lungs: Clear to Auscultation Abdomen: Normal Bowel Sounds, Soft, No Tenderness Extremities: No Clubbing, No Cyanosis, No Edema Assessment/Plan Assessment: 82-year-old male with PMH of dementia, emphysema, hypertension, hypothyroidism, glaucoma, previous history of stroke, presented in ER for seizure-like activity. According to description it appears that patient may have to tonic-clonic seizure at home and loss of consciousness. Patient regained consciousness immediately after the episode and did not have any residual weakness or confusion. On admission he had significant lactic acidosis which quickly resolved with making it most likely due to the seizure. -Seizure like activitynew onset at the age of 82 -? syncope - Lactic acidosis -resolved- -testicular pain and swelling (possible hydrocele) -History of HTN, hypothyroidism, dementia, glaucoma, history of CVA, COPD, neck surgery - Continuous telemetry monitoring -Continue Keppra 250 twice daily, and the patient tolerated well with no behavioral changes or suppression, will increase the dose to 500 - Serial neuro checks - Seizure precautions - When necessary Ativan for any repeat episode of seizure - If patient has seconds seizure episode then start Keppra 500 mg twice a day - stress test showed reversible ischemia and apex and adjacent apical inferior segment, will discuss with cardiology his need for diagnostic cath -ABG this morning at 8 AM showed PCO2 50, PO2 59, bicarb 29 -TRC and nebs - Cardiology recommendation appreciated - Neuro recommendation appreciated DNR/DNI regular diet dvt px with lovenox Problem List: 1. Seizure 2. COPD (chronic obstructive pulmonary disease) Pain Ratin Pain Location: N/A Pain Goal: Remain pain free Pain Plan: Pathway Tomorrow's Labs & Rationales: N/A Pepper Mckeon 11/13/17 1202: Attending MD Review Statement Attending Statement Attending MD Statement: examined this patient, discuss w/resident/PA/INSTRUMENT MAKER, agreed w/resident/PA/INSTRUMENT MAKER, discussed with family, reviewed EMR data (avail), discussed with nursing, discussed with case mgmt, reviewed images, amended to note Attending Assessment/Plan: Patient seen/examined bedside. Daughter bedside today. No new complaints. Urgency still present. Urine culture noted. Stress test results noted with reversible perfusion defect. Patient admitted to telemetry for dementia related seizure disorder. MRI brain with no acute pathology. EEG with no abnormal study. Started on AED for seizure prophyalxis 250 bid as per neurology for dementia related seizures. Abnormal stress test: elective cardiac catherization as per Dr Juares. Troponin negative. ECHO with no significant abnormality. COPD on home oxygen, stable. Dr Nanda burton with ABG suggestive of hypercapnia and hypoxia Hypernatrmeia resolved Dementia provide supportive care Hydrocele, USG scrotum with no acute pathology. PO abx for UTI. Follows Dr Fuentes as outpatient. gi/dvt prophyalxis Discharge planning based on cardilogy recs.
--- NOTE | 2017-11-13 12:15 | PN- Pulmonary ---
Subjective HPI/Critical Care Issues: pt seen and examined comfortable stress test results reviewed Objective Current Medications: Current Medications Sig/Faizan Start time Last Medication Dose Route Stop Time Status Admin Albuterol Sulfate 3 ML Q4P PRN 11/12 1400 AC INH Aspirin 162 MG DAILY 11/11 1715 AC 11/13 PO 0757 Atorvastatin Calcium 40 MG 1700 11/12 1800 AC 11/12 PO 1859 Ciprofloxacin 250 MG BID 11/13 1304 AC PO 11/15 2101 Dipyridamole 40 MG ONE 11/12 0000 DC Dextrose/Water 32 ML IV 11/12 2359 Enoxaparin Sodium 40 MG DAILY 11/11 0900 AC 11/13 SC 0759 Latanoprost 1 GTT QPM 11/11 2100 AC 11/12 OPH 2048 Levetiracetam 250 MG BID 11/11 1715 AC 11/13 PO 0757 Levothyroxine Sodium 0.05 MG DAILY AC 11/11 0700 AC 11/13 PO 0545 Lisinopril 20 MG DAILY 11/12 0900 AC 11/13 PO 0756 Melatonin 5 MG AT BEDTIME 11/11 2100 AC 11/12 PO 2047 Memantine 10 MG BID 11/11 0900 AC 11/13 PO 0757 Metoprolol Tartrate 25 MG BID 11/12 2100 AC 11/13 PO 0757 Patient Medication 1 ED ONE ONE 11/12 1645 DC Teaching ED 11/12 1646 Vital Signs & I&O Last 24 Hrs of Vitals and I&O: Vital Signs Date Time Temp Pulse Resp B/P B/P Pulse O2 O2 Flow FiO2 Mean Ox Delivery Rate 11/13 1409 98.2 72 22 100/54 97 Nasal 4.5L Cannula 11/13 0900 87 Nasal 0.5L Cannula 11/13 0800 94 Nasal 2.0L Cannula 11/13 0757 90 126/62 11/13 0756 90 126/62 11/13 06 98.7 79 26 126/62 92 Nasal Cannula 11/12 2214 98.9 92 26 128/70 87 Nasal 1.0L Cannula 11/12 2106 Nasal 0.5L Cannula 11/12 204 100 130/78 11/12 1838 84 Room Air 11/12 1600 96 Room Air Room Air Intake & Output 11/13 1600 11/13 0800 11/13 0000 Intake Total 680 200 220 Output Total 600 125 75 Balance 80 75 145 Intake, Oral 680 200 220 Output, Urine 600 125 75 Patient 151 lb Weight Exam Other Physical Findings: gen-awake and alert, comfortable heent-ncat cvs-s1,s2 lungs diminished bs bilaterally, bibasilar rhonchi abd-soft, bs+ ext without edema, + dry skin Results Last 24 Hrs of Lab Results: Laboratory Tests 11/13/17 0855: pH 7.39, pCO2 50 H, pO2 59 L, HCO3 29 H, ABG O2 Sat (Measured) 88.0 L, Carboxyhemoglobin 0.9 L, O2 Concentration % 0.5 LPM, O2 Delivery Method NC, Phlebotomy Draw Site RIGHT RADIAL Impression/Plan Impression/Plan Impression/Plan: Impression 82 year old man * witnessed seizure activity * COPD clinically diagnosed Plan -continue management per primary team and cardiology -stress positive and plan for intervention per cardiology -outpatient PFTs -given most recent ABG the patient does not qualify for BiPAP at this time, however a sleep study would be very helpful and given a family history of DAMIEN he likely has this as well and will most likely benefit from therapy if the diagnosed is made -TRC and nebulizer treatments as needed Previous recommendation: Pt is on Advair at home, this may need to be changed, but prior to change, continue it, just ensure that it is used BID with rinsing of the mouth vs once daily, it does not need to be started inpatient, but can ask pharmacy if patient can bring his own med -would not initiate symbicort inpatient due to potential addition to confusion of proper inhaler use as he is not going to require symbicort upon discharge DVT prophylaxis at all times
--- NOTE | 2017-11-13 13:11 | Discharge Summary ---
Visit Information Visit Dates Admission Date: 11/11/17 Discharge Date: 11/13/17 Hospital Course Course Attending Physician: Pepper Mckeon MD Primary Care Physician: Cortes Kilgore MD Hospital Course: 82 y M with PMH of stroke, dementia, emphysema, HTN, hypothyroidism, GLUCOMA was BIBA to ED with after and episode of being unresponsive. Patient is relatively poor historian and family were contributing in history taking. Patient was in normal state of health until earlier yesterday, he was watching TV after eating dinner, he then became unresponsive suddenly and started to have generalized tonic colonic seizure. Family witnessed the episode and noted he had no bowel bladder incontinance, he had post episode confusion, VS, Ph Ex at admission: BP insignificant, initial respiratory rate 30, later 20, saturating well on 2l o2, no fever Labs at admission: WBC 10.6, Hgb 13.3 Sodium 148, anion gap 22, bicarbonate 23, lactic acid 11, prolactin 21 UA, which is positive, leukocyte esterase small, WBC 10-15, hemoglobin small Utox negative Imagings at admission: Chest x-ray: Patchy consolidation in the bilateral lower lung zones superimposed on chronic changes. Head CT: - No acute abnormality identified. - Moderate small vessel ischemic changes. Patient was admitted to telemetry floor for management of following conditions: Carotid Doppler: Plaque is present in the internal carotid arteries but velocity measurements are normal and there is no evidence to suggest a hemodynamically significant stenosis of greater than 50% diameter reduction. Testicular ultrasound: 1. Bilaterally normal testicles with no evidence of epididymoorchitis or testicular torsion. 2. Large left scrotal hydrocele, similar to prior exam. 3. Two small scrotal pearls are seen within the periphery of the left hemiscrotum, unchanged from prior exam. 4. Small right epididymal head cyst. Echo: 1. Normal EF of 60% with impaired LV relaxation. 2. Trace tricuspid regurgitation. Head MRI: - No acute infarct, mass lesion, intracranial hemorrhage, or evidence of hydrocephalus. - Moderate small vessel ischemic changes. Stress test: Abnormal study. A moderately sized partially reversible perfusion abnormality is present involving the apex and adjacent apical inferior, apical septal, and mid inferoseptal ross. Left ventricular wall motion and ejection fraction are normal. He was admitted to telemetry for treatment of the following conditions: Seizure, need to rule out secondary causes considering age: CT, MRI and EEG were normal, patient was a started on Keppra 250 twice daily. Neuro was following the case, the suspect that his seizure is due to underlying dementia. Aricept was discontinued for the possibility of bradycardia Aspirin 162 and lisinopril 20 daily were started active UA: UA was positive for WBC, with small leukocyte esterase, the patient was started on ciprofloxacin 250 twice daily for a total of 3 days Pneumonitis/pneumonia Lactic acidosis: Most likely was caused by the seizure, resolved quickly. IHD: Stress test was positive for reversible ischemia in the apex and adjacent inferior wall Patient was a started on metoprolol 25 mg twice daily, statin in addition to aspirin, he was scheduled for outpatient cardiac cath with his bill checker Dr. Juares COPD ABG was tested twice,pt didn't require any BIPAP while he was in the hospital. the patient was evaluated by corporate development associate who recommended outpatient pulmonary function test determine severity and nature of lung disease as well as sleep study for possible DAMIEN. He was kept on Adavair BID Large left hydrocele: Testicular ultrasound showed Large left scrotal hydrocele, similar to prior exam , Two small scrotal pearls are seen within the periphery of the left hemiscrotum , unchanged from prior exam, Small right epididymal head cyst. Patient was advised to follow-up with his urologist as an outpatient DNR/DNI regular diet dvt px with lovenox Allergies: Coded Allergies: NO KNOWN ALLERGIES (01/05/14) Disposition Summary Disposition Principal Diagnosis: Seizure Additional Diagnosis: Ischemic heart disease Discharge Disposition: home health services Discharge Instructions General Discharge Information Code Status: Full Code Patient's Diet: Regular diet Patient's Activity: As tolerated Follow-Up Instructions/Appts: 1- please follow up with your bill checker- Dr Juares for cardiac cath next saturday 11/18 2- please follow up with neurologist in 1 week of discharge 3- please follow up with your pcp in 1 week 4- please follow up with corporate development associate for sleep study and pulmonary function test 5- for the inhalr Advair, please make sure to use it twice daily with rinsing of the mouth after using the inhalar. Medications at Discharge Discharge Medications: Stop taking the following medications: Verapamil HCl (Verapamil ER) 240 MG CAP24H.PEL ORAL DAILY Qty = 90 Donepezil HCl (Donepezil HCl) 10 MG TABLET ORAL DAILY Qty = 90 Continue taking these medications: Levothyroxine Sodium (Levothyroxine Sodium) 50 MCG TABLET 1 Tablet ORAL DAILY Qty = 30 Memantine HCl (Namenda) 10 MG TABLET 1 Tablet ORAL TWICE DAILY Qty = 60 Fluticasone-Salmeterol (Advair 100-50 Diskus) 100 MCG-50 MCG/DOSE BLST.W.DEV 1 Puff Inhale through mouth TWICE DAILY Comments: Last Taken: NOT GIVEN IN HOSPITAL Brinzolamide (Azopt) 1 % DROPS.SUSP 1 Drop In the eye TWICE DAILY Qty = 15 Comments: Last Taken:11/12/17 Time: 9:00PM Latanoprost (Latanoprost) 0.005 % DROPS 1 Drop In the eye Every night Qty = 3 Comments: Last Taken:11/12/17 Time:9:00PM Start taking the following new medications: Ciprofloxacin HCl (Ciprofloxacin HCl) 250 MG TABLET 250 Milligram ORAL TWICE DAILY Qty = 6 No Refills Instructions: . Comments: Last Taken:11/13/17 Time:5:00PM Aspirin (Aspirin*) 81 MG TAB.CHEW 162 Milligram ORAL DAILY Qty = 90 No Refills Instructions: . Comments: Last Taken:11/13/17 Time:9:00AM Lisinopril (Lisinopril) 20 MG TABLET 20 Milligram ORAL DAILY Qty = 90 No Refills Comments: Last Taken:11/13/17 Time:9:00AM Levetiracetam (Levetiracetam) 250 MG TABLET 250 Milligram ORAL TWICE DAILY Qty = 120 No Refills Comments: Last Taken:11/13/17 Time:9:00AM Atorvastatin Calcium (Atorvastatin Calcium) 40 MG TABLET 40 Milligram ORAL 5 PM Qty = 90 No Refills Comments: Last Taken:11/13/17 Time:5:00PM Metoprolol Tartrate (Metoprolol Tartrate) 25 MG TABLET 25 Milligram ORAL TWICE DAILY Qty = 90 No Refills Comments: Last Taken:11/13/17 Time:9:00AM Copies To: Magui FALK,Cortes Reed MD Review Statement Documenting Attending: Mike FALK,Pepper Other Findings: Patient admitted to telemetry for dementia related seizure disorder. MRI brain with no acute pathology. EEG with no abnormal study. Started on AED for seizure prophyalxis Keppra as per neurology for dementia related seizures. Abnormal stress test: elective cardiac catherization as per Dr Juares. Troponin negative. ECHO with no significant abnormality. COPD on home oxygen, stable. Dr Vee follwoing with ABG suggestive of hypercapnia and hypoxia Hypernatrmeia resolved Dementia provide supportive care Hydrocele, USG scrotum with no acute pathology. PO abx for UTI. Follows Dr Fuentes as outpatient. FOLLOW UP Dr Juares on coming Thursday for elective catheterization as per cardiology Dr Vee pulmonary in [address] Fuentes urology in 2-3 weeks
--- NOTE | 2017-11-13 13:25 | Patient Discharge Instructions ---
Discharge Instructions General Discharge Information You were seen/treated for: seizure Special Instructions: 1- please follow up with your wrapper cashier- Dr Juares for cardiac cath next saturday 11/18 2- please follow up with neurologist in 1 week of discharge 3- please follow up with your pcp in 1 week 4- please follow up with event representative for sleep study and pulmonary function test 5- for the inhalr Advair, please make sure to use it twice daily with rinsing of the mouth after using the inhalar. Diet Continue normal diet: Yes Acute Coronary Syndrome Inclusion Criteria At DC or during hospital stay patient has or had the following: ACS DIAGNOSIS No Discharge Core Measures Meds if any: Prescribed or Continued at Discharge Meds if any: NOT Prescribed or Continued at Discharge Congestive Heart Failure Inclusion Criteria At DC or during hospital stay patient has or had the following: CHF DIAGNOSIS No Discharge Core Measures Meds if any: Prescribed or Continued at Discharge Meds if any: NOT Prescribed or Continued at Discharge Cerebrovascular accident Inclusion Criteria At DC or during hospital stay patient has or had the following: CVA/TIA Diagnosis No Discharge Core Measures Meds if any: Prescribed or Continued at Discharge Meds if any: NOT Prescribed or Continued at Discharge Venous thromboembolism Inclusion Criteria VTE Diagnosis No VTE Type NONE VTE Confirmed by (Test) NONE Discharge Core Measures - Per Current guidelines, there needs to be overlap - treatment for the first 5 days of Warfarin therapy. - If discharged on Warfarin prior to 5 days of - overlap therapy, the patient will need to be - assessed for post discharge needs including - *Post discharge parental anticoagulation - *Warfarin and/or parental anticoagulation education - *Follow up date to check INR post discharge At least 5 days overlap therapy as Inpatient No Meds if any: Prescribed or Continued at Discharge Note: Overlap Therapy is Warfarin and Anticoagulant Meds if any: NOT Prescribed or Continued at Discharge
[2017-11-13] MEDS ORDERED: CIPROFLOXACIN250 M1 PO ×2 (13:34→15:17)
--- NOTE | 2017-11-13 13:55 | PN- Cardiology ---
Subjective Subjective: * Patient reports a decreased appetite without chest discomfort, shortness of breath, lightheadedness or palpitations. His abdominal discomfort that he mentioned yesterday has abated. * No dysrhythmias. * Stress test is remarkable for an inferior and inferoseptal mostly fixed defect with some minimal associated ischemia. * Heart rate and blood pressure appear well controlled on his current drug regimen. Objective Vital Signs and I&Os Vital Signs Date Time Temp Pulse Resp B/P B/P Pulse O2 O2 Flow FiO2 Mean Ox Delivery Rate 11/13 0900 87 Nasal 0.5L Cannula 11/13 0800 94 Nasal 2.0L Cannula 11/13 0757 90 126/62 11/13 0756 90 126/62 11/13 0627 98.7 79 26 126/62 92 Nasal Cannula 11/12 2214 98.9 92 26 128/70 87 Nasal 1.0L Cannula 11/12 2107 Nasal 0.5L Cannula 11/12 2048 100 130/78 11/12 1838 84 Room Air 11/12 1600 96 Room Air Room Air 11/12 1412 97.7 96 22 118/60 93 Nasal 2.0L Cannula Intake & Output 11/13 1600 11/13 0800 11/13 0000 11/12 1600 11/12 0800 11/12 0000 Intake Total 200 220 300 50 100 Output Total 125 75 400 50 300 Balance 75 145 -100 0 -200 Intake, Oral 200 220 300 50 100 Output, Urine 125 75 400 50 300 Patient 151 lb 154 lb Weight Weight Bed scale Measurement Method Physical Exam: General: WD/WN male in NAD; awake and responsive, decreased memory HEEnT: NC/AT, PERRL, EOMI Neck: no JVD, no carotid bruit Heart: RRR w/o murmur Lungs: decreased air movement bilaterally, no crackles or wheezing Abdomen: soft, NT, +ve bowel sounds Extremities: no edema Assessment/Plan Assessment/Plan * This patient likely has had multiple seizures in the recent past. He reports shaking to his family and he has had intermittent mental status changes that are beyond his baseline suggestive of a post-ictal state. Continue Keppra as recommended by neurology. * This patient also has COPD with hypercarbic respiratory failure. PFT's are planned as an outpatient with a repeat ABG planned for tomorrow. Dr. Vee is following. * No evidence of any significant cardiac dysrhythmia. His BP is well controlled on his current drug regimen. Continue Metoprolol and Lisinopril. Stop verapamil and Aricept. * This patient has a small amount of ischemia in the inferior wall. After discussion with the patient's family it was decided that we will pursue a cardiac catheterization. The patient is pain free and this will be done as an outpatient on Thursday. Okay to discharge from a cardiac standpoint on Metoprolol 25mg BID, aspirin 162mg daily, Atorvastatin 40mg daily and Lisinopril 20mg daily. Continue telemetry? No
[2017-11-13 14:09] VITALS: BP 100/54
[2017-11-13] MEDS ORDERED: METOPROLOL TART25 M1 PO (15:06)
[2017-11-13] MEDS ORDERED: ATORVASTATIN CA40 M1 PO (15:06)
[2017-11-13] MEDS ORDERED: ASPIRIN81 M4 PO (15:17)
== END 2017-11-13 18:00 | disposition home health service (06) | DRG 101 ==
LOC: ERH 22:22 → 1NO 11-11 00:38 → ERHI 11-11 00:38 → ENRESERV 11-11 01:42 → 1NO 11-11 02:29 → ENPENDDIS 11-13 15:10 → ENTRNSPT 11-13 17:48 → 1NO 11-13 18:00 → ENRESERV 11-13 18:10 → CMPTRNSPT 11-13 18:21
PROVIDERS: Emergency Medicine; Internal Medicine; Student in an Organized Health Care Education/Training Program
DX: R56.9 Unspecified convulsions (principal); E87.2 Acidosis; E87.0 Hyperosmolality and hypernatremia; F05 Delirium due to known physiological condition; Z86.73 Personal history of transient ischemic attack (TIA), and cerebral infarction without residual deficits; I10 Essential (primary) hypertension; E03.9 Hypothyroidism, unspecified; D69.6 Thrombocytopenia, unspecified; N43.3 Hydrocele, unspecified; G30.9 Alzheimer's disease, unspecified; F02.80 Dementia in other diseases classified elsewhere, unspecified severity, without behavioral disturbance, psychotic disturbance, mood disturbance, and anxiety; I45.4 Nonspecific intraventricular block; J44.9 Chronic obstructive pulmonary disease, unspecified
CPT/HCPCS: 1NP; 70551; 36592; 71045; 78452; 80307; 81001; 82436; 87086; 93005; 93010; 93016; 93017; 93306; 95816; 97116-GO; 97161-GP; 97530-GO; A9502; G0480; J1245; J1650; J1953; J3490